=== PATIENT | male | born 1960 | race Caucasian/White ===

== ENCOUNTER 2016-05-18 05:49 | Day surgery (SDC) | payer OTHER, SELFPAY ==
[2016-05-18] MEDS ORDERED: LACTATED RINGERS 1,000 ML ONE (06:22)
[2016-05-18] MEDS ORDERED: PROPOFOL 200 MG/20 ML VIAL IV ONE (07:00)
--- NOTE | 2016-05-18 09:15 | OP ---
DATE OF PROCEDURE: 05/18/16 PREOPERATIVE DIAGNOSIS: 1. Recurrent diverticulitis and abnormal CT of the colon. POSTOPERATIVE DIAGNOSIS: 1. Sigmoid diverticulosis. PROCEDURE: 1. Colonoscopy. SURGEON: Julio Shepherd MD. COMPLICATIONS: None apparent. BLOOD LOSS: None. MEDICATIONS: Monitored anesthesia care. DESCRIPTION OF PROCEDURE: Informed consent was obtained prior to sedation. The preprocedure cardiopulmonary assessment was satisfactory. The patient was placed in the left lateral decubitus position and was sedated. A digital rectal exam was unremarkable. The tip of the Olympus colonoscope was inserted in the rectum and guided over to the cecum. The cecum was identified by locating the ileocecal valve and appendiceal orifice. The mucosa of the cecum, ascending colon, hepatic flexure, transverse colon, splenic flexure, descending colon and sigmoid colon was closely examined. Direct and retroflexed views of the rectum were obtained. The significant findings are sigmoid diverticulosis. There is no evidence of active diverticulitis, no significant stricture, and nothing like a colon mass seen. RECOMMENDATIONS: Followup with Dr. Nash to see about a resection of the affected colon to try to prevent or reduce the risk of recurrent diverticulitis. #[id number] cc: Colton Nash MD MTDD
[2016-05-18 09:43] VITALS: TEMP 97.7; O2SAT 96
[2016-05-18 09:45] VITALS: BP 143/88
== END 2016-05-18 09:30 | disposition home or self-care (01) ==
LOC: AMB 05:49
PROVIDERS: ATTEND Internal Medicine Gastroenterology
DX: K57.32 Diverticulitis of large intestine without perforation or abscess without bleeding (principal); R93.3 Abnormal findings on diagnostic imaging of other parts of digestive tract; K57.30 Diverticulosis of large intestine without perforation or abscess without bleeding; Z86.010 Personal history of colon polyps; F17.210 Nicotine dependence, cigarettes, uncomplicated
CPT/HCPCS: 00810; 45378; J3490; J7120

== ENCOUNTER 2016-06-30 05:57 | Inpatient (IN) | payer OTHER ==
--- NOTE | 2016-06-28 10:01 | RAD ---
EXAM DESCRIPTION: Chest,2 Views CLINICAL HISTORY: 55 years,Male,PRE OP COMPARISON: January 18, 2016 FINDINGS: There are no consolidations. No effusions. No pneumothoraces. No nodules. Bony elements unremarkable for age. IMPRESSION: Unremarkable chest for age stable. Incidental is heavy calcification seen in the carotid bifurcations. Electronically signed by: Herminio Bolden MD 06/28/2016 10:00 AM CDT
[2016-06-30] MEDS ORDERED: LACTATED RINGERS 1,000 ML ONE (06:15)
[2016-06-30] MEDS ORDERED: SODIUM CHL 0.9% 100ML MINI-BAG 100 ML IVPB ONE (06:15)
[2016-06-30] MEDS ORDERED: cefOXitin SODIUM 2 GM INJ IVPB ONE ×4 (06:15→20:10)
[2016-06-30] MEDS ORDERED: hydrALAZINE HCl 20 MG/ML VIAL ONE (07:00)
[2016-06-30] MEDS ORDERED: METOCLOPRAMIDE HCL INJ 10 MG/2 ML VIAL ONE (08:00)
[2016-06-30] MEDS ORDERED: VECURONIUM BROMIDE 10 MG VIAL IV ONE (08:00)
[2016-06-30] MEDS ORDERED: LIDOCAINE 1% 10 ML VIAL INJ ONE (08:00)
[2016-06-30] MEDS ORDERED: WATER FOR INJ 10 ML VIAL INJ ONE (08:00)
[2016-06-30] MEDS ORDERED: LABETALOL INJ 5 MG/ML VIAL ONE (08:00)
[2016-06-30] MEDS ORDERED: DEXAMETHASONE INJ 10 MG/ML VIAL ONE (08:00)
[2016-06-30] MEDS ORDERED: GLYCOPYRROLATE 0.2 MG/ML VIAL ONE (08:00)
[2016-06-30] MEDS ORDERED: raNITIdine HCL INJ 25 MG/ML VIAL ONE (08:00)
[2016-06-30] MEDS ORDERED: PROPOFOL 200 MG/20 ML VIAL IV ONE (08:00)
[2016-06-30] MEDS ORDERED: NEOSTIGMINE METHYLSULFATE 1 MG/ML ML IV ONE (08:00)
[2016-06-30] MEDS ORDERED: MIDAZOLAM INJ 5 MG/5 ML VIAL ONE (08:10)
[2016-06-30] MEDS ORDERED: fentaNYL CITRATE INJ 50 MCG/ML AMP ONE ×2 (08:10→08:55)
[2016-06-30] MEDS ORDERED: LEVALBUTEROL NEBS 1.25 MG/3 ML VIAL NEB ONE ×2 (08:14→12:26)
--- NOTE | 2016-06-30 08:37 | HP ---
HISTORY OF PRESENT ILLNESS: The patient is a 55-year-old male who has had multiple episodes of diverticulitis and chronic left lower quadrant pain. He has undergone a colonoscopy by Dr. Shepherd, followed by an antibiotic and mechanical bowel prep yesterday and he is admitted today for exploratory laparotomy and sigmoid colectomy with anastomosis. PAST MEDICAL HISTORY: 1. Hepatitis C. 2. Urinary frequency. 3. Benign prostatic hypertrophy. 4. Chronic obstructive pulmonary disease. PAST SURGICAL HISTORY: 1. Appendectomy. 2. Left inguinal herniorrhaphy. 3. Lymph node resection on his right neck. CURRENT MEDICATIONS: He takes no medications on a routine basis. ALLERGIES: NO KNOWN DRUG ALLERGIES. FAMILY HISTORY: Negative for inflammatory bowel disease or carcinoma of the colon. SOCIAL HISTORY: He is . He has a 40 to 60 pack year history of tobacco abuse. No history of alcohol abuse. 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 REVIEW OF SYSTEMS: There has been no weight loss, no recent chest pain or productive cough. No blood per rectum, melanotic stools, or other change in his bowel habits. He denies blood in his urine. He has no problem with balance or headaches. PHYSICAL EXAMINATION: GENERAL: The patient is awake, alert, cooperative, in no acute distress. VITAL SIGNS: The patient is currently afebrile, normotensive. HEENT: Sclerae nonicteric. Mucous membranes moist. NECK: Without adenopathy. BACK: Without CVA tenderness. CHEST: Equal breath sounds bilaterally without wheezing currently. HEART: Regular rhythm. ABDOMEN: Soft. There is mild tenderness in the left lower quadrant without mass. RECTAL: Deferred. EXTREMITIES: Without cyanosis, clubbing or edema. LABORATORY: Hemoglobin 15. Electrolytes are within normal limits. ASSESSMENT: 1. Left lower quadrant abdominal pain secondary to recurrent diverticulitis with diverticulosis. 2. Hepatitis C. 3. Chronic obstructive pulmonary disease. PLAN: Admission today for exploratory laparotomy and sigmoid colectomy. A hospitalist consultation will be obtained postoperatively for his pulmonary toilet and help with fluid management. #[id number] [facility]
[2016-06-30] MEDS ORDERED: ELECTROLYTE-A 1,000 ML IVS ONE ×2 (09:25→10:36)
[2016-06-30] MEDS ORDERED: HYDROmorphone HCL INJ 2 MG/ML VIAL ONE (09:56)
[2016-06-30] MEDS: HYDROmorphone HCL INJ 2 MG/ML VIAL IV PRN ×6 (12:45→22:18)
[2016-06-30] MEDS: ONDANSETRON INJ 4 MG/2 ML VIAL ONE ×2 (12:53→12:55)
--- NOTE | 2016-06-30 13:24 | OP ---
DATE OF PROCEDURE: 06/30/16 PREOPERATIVE DIAGNOSIS: 1. Recurrent diverticulitis. POSTOPERATIVE DIAGNOSIS: 1. Recurrent diverticulitis. PROCEDURE: 1. Exploratory laparotomy. 2. Sigmoid colectomy with transrectal stapled EEA anastomosis. SURGEON: Colton Nash MD. HOT MIX OPERATOR: None. ANESTHESIA: General endotracheal anesthesia. INDICATION: The patient is a 55-year-old male who has had multiple episodes of diverticulitis with chronic left lower quadrant pain. He has undergone a colonoscopy last month which revealed no other pathology other than the diverticular disease and after an antibiotic and mechanical bowel prep, he was brought to the Surgical Suite today for laparotomy after the risks, benefits and alternatives to the procedure were discussed with the patient in my office. FINDINGS: There were significant adhesions in the pelvis to the left pelvic sidewall. No other significant pathology was identified. The liver palpated as a soft, normal liver. When the proctoscope was used to insufflate the colon after the anastomosis, there were no bubbles noted. PROCEDURE: After adequate general endotracheal anesthesia was obtained, the patient was placed in dorsolithotomy position, prepped and draped in the usual sterile manner. Mercado catheter was placed. A surgical time-out was taken. At this time, a midline incision was made from just even with the umbilicus down to the pubis, first with a sharp knife. Dissection was carried down through the skin and subcutaneous tissue using blunt dissection and electrocautery. At this point, the midline fascia was scored using electrocautery and eventually the peritoneum the same way. The area was inspected. At this time, the patient was placed in Trendelenburg position and the self-retaining retractor was used. The small bowel, which there were some adhesions from his previous appendectomy to the right posterior peritoneum. These were lysed and the small bowel was placed under a green towel and retracted using a malleable retractor. When this was done, the colon was identified. The adhesions were taken down using electrocautery and blunt dissection. When this was identified, dissection was carried distally until fresh tissue was identified. The mesentery was divided using blunt dissection and clamps and ligatures of 2-0 and 3-0 Vicryl. It was then stapled using a thick, double row stapler and transected with a sharp knife. The mesentery was then divided using clamps and ligatures of 2-0 and 3-0 Vicryl. The proximal area for resection was identified. It was cleaned using electrocautery and blunt dissection and clamps and ligatures of 3-0 Vicryl. When this had been done and the mesentery had been completely divided, then the pursestring device was used to staple across the proximal margin and it was transected using curved Rojas scissors and the specimen was passed from the field. A sponge was placed underneath the colon and the end was opened. The extra rory were removed. It was gently dilated first with hemostat and then with the dilators, first a 25 mm and then a 28 mm. At this point, the 28 EEA was obtained. The anvil was obtained and introduced into the proximal colon. The suture was tightened and tied. At this point, a sponge which had been placed in the pelvis for hemostasis was removed. The pelvis was irrigated minimally. Hemostasis was noted to be adequate. At this point, I went to the perineum and first introduced the 25 and 28 dilators without significant difficulty, then the EEA device was introduced, identified at the staple line, and the post was brought out just anterior to the staple line. The anvil was then attached. It was closed without difficulty, fired, and removed without difficulty. At this point, the proctoscope was introduced. The anastomosis was identified. There was a small amount of bleeding. Air insufflated and there was no leak when saline was placed in the pelvis. At this point, the proctoscope was removed. I was able to inspect the proximal and distal donuts. They were sent for pathologic evaluation, but they appeared to be good donuts. At this point, we all changed gowns and gloves. I returned to the upper abdomen which was irrigated copiously with saline. The nasogastric tube was checked in the stomach. The liver was palpated and noted to be within normal limits. At this point, again, the pelvis was irrigated, aspirated, and the midline fascia was then closed with running #1 PDS from above and below. This was tightened and tied. The subcutaneous tissue was irrigated with saline. The skin edges were approximated with a skin stapler. Sterile dressing was applied. An abdominal binder was applied. The patient was awakened and taken to the Recovery Room in good and stable condition. Estimated blood loss was approximately 400 mL. All sponge, needle and instrument counts were correct. #[id number] [facility]
[2016-06-30] MEDS ORDERED: SODIUM CHL 0.9% 50ML MIN-BAG+ 50 ML IVPB ONE ×2 (14:28→20:10)
[2016-06-30] MEDS: PANTOPRAZOLE SODIUM IV 40 MG VIAL IV SCH (14:38)
[2016-06-30] MEDS: cefOXitin SODIUM 2 GM in SODIUM CHL 0.9% 50ML MIN-BAG+ 50 ML IVPB SCH ×2 (14:39→22:10)
[2016-06-30] MEDS ORDERED: NICOTINE PATCH 14 MG TD ONE (15:34)
[2016-06-30] MEDS ORDERED: REMOVE OLD PATCH TOP ONE (16:00)
[2016-06-30] MEDS: LACTATED RINGERS 1,000 ML IVS PRN (17:44)
--- NOTE | 2016-06-30 18:57 | CONS ---
DATE OF CONSULTATION: 06/30/16 SUPERVISING PHYSICIAN: Nilson Myles M.D. REFERRING PHYSICIAN: Colton Nash M.D. REASON FOR CONSULTATION: Postoperative management sigmoid colectomy with transrectal anastomosis with history of extensive tobacco abuse. HISTORY OF PRESENT ILLNESS: Mr. Alarcon is a 55 year-old male patient that has an extensive history of multiple episodes of diverticulitis and left lower quadrant pain requiring hospitalization in the past. He had recently undergone a colonoscopy by Dr. Shepherd and had seen Dr. Nash. Today he had an exploratory laparotomy and sigmoid colectomy with transrectal anastomosis for recurrent diverticulitis. The patient was seen postoperatively to assist with medical management as the patient has a longstanding history of chronic obstructive pulmonary disease with tobacco abuse. The patient was seen in the immediate postoperative state from recovery and at time of exam was in stable condition and alert. PAST MEDICAL HISTORY: 1. Hepatitis C. 2. Chronic smoking with lung involvement with chronic obstructive pulmonary disease. 3. Enlarged prostate. PAST SURGICAL HISTORY: 1. Right cervical node removal. 2. Appendectomy at age 10. 3. Left hernia repair by Dr. Nash. CURRENT MEDICATIONS: The patient takes no chronic medications. ALLERGIES: NO KNOWN DRUG ALLERGIES. FAMILY HISTORY: Negative for inflammatory bowel disease or carcinoma of the colon. Positive for coronary artery disease, diabetes mellitus, strokes and cancers. SOCIAL HISTORY: Mr. Alarcon has smoked tobacco since age 7 and currently is a 1- 1/2 pack per day smoker related to approximately 50 to 60 pack per year history. He does have a history of intravenous drug abuse but reports that he has been clean for over 30 years. He did develop hepatitis C at age 13 after drug exposure and multiple tattoos. REVIEW OF SYSTEMS: CONSTITUTIONAL: He denies that he has had any weight loss in the recent months , but has noted he has had an approximately 30 to 40 pound weight loss over the last 3 years. He denies any fever or chills prior to surgical process. HEENT: Denies any significant hearing or vision changes or disturbances. PULMONARY: He does have a frequent cough with some mild shortness of breath with exertion and he is a chronic smoker. CARDIOVASCULAR: He has no significant history of chest pains. Denies any palpitations. GASTROINTESTINAL: Denies any blood per rectum, melenic stools or other changes in bowel habits, nausea or vomiting. Does have history as noted in the History of Present Illness with multiple episodes of diverticulitis requiring hospitalization. GENITOURINARY: Does have a history of enlarged prostate but denies any dysuria or any hematuria. EXTREMITIES: No reported complaints of edema. NEUROLOGIC: He has no focal deficits or headaches reported. PHYSICAL EXAMINATION: VITAL SIGNS: On admission to the Medical/Surgical floor showed temperature 98.4 , pulse 92, blood pressure 130/75, respirations 20, satting 96% on nasal cannula at 3 liters. Admission weight was 87.0 kg. GENERAL: The patient was seen immediately postoperative from PACU. He was alert but sleepy, but easy to arouse. Appeared to be comfortable. HEENT: Tympanic membranes are clear bilaterally. Oropharynx is pink and moist. There were no lesions noted. NECK: Supple. No jugular venous distention. CHEST: Lungs sounds are clear but diminished towards the bases. There is no notable rhonchi, wheezing or rales. HEART: Regular rate and rhythm without appreciable murmurs, gallops, or rubs. ABDOMEN: Bowel sounds were significantly diminished, although difficult to assess with an abdominal binder in place. The patient is obviously tender from recent surgery but appears comfortable. EXTREMITIES: No clubbing, cyanosis or edema. NEUROLOGIC: He is alert and oriented times three. LABORATORY: Preoperative lab work shows white count 8.9, hemoglobin 15.8, hematocrit 46.7 with platelet count 248,000. Differential showed to be within normal limits. Preoperative chemistries showed normal electrolytes with potassium 4.4, BUN 15, creatinine 0.96, glucose 111, calcium 9.0. Preoperative urinalysis showed to be within normal limits. RADIOLOGY: Preoperative chest x-ray per radiology interpretation showed no consolidations, effusions, pneumothoraces or nodules. Otherwise unremarkable chest. There was note of heavy calcification seen in the carotid bifurcations. Preoperative EKG showed normal sinus rhythm. No ST or T wave changes. ASSESSMENT: 1. Postoperative day zero for exploratory laparotomy and sigmoid colectomy with a transrectal anastomosis secondary to recurrent diverticulitis. 2. History of hepatitis C. 3. Chronic obstructive pulmonary disease in a chronic smoker. 4. History of nicotine addiction in a chronic smoker. PLAN: The patient will be followed medically along with the direction of Dr. Nash, general surgeon, in regards to postoperative recovery phase. Will monitor the patient closely in regards to his chronic obstructive pulmonary disease and nicotine addiction. Will encourage, once he is fully able to and alert, incentive spirometry and deep breathing exercises to prevent any complications such as atelectasis. In regards to pulmonary function, will closely monitor and should he show any decrease in functionality in regards to low O2 sats, will consider adding pulmonary hygiene and breathing treatments accordingly. In regards to his nicotine addiction, will start him on a nicotine patch once he is fully alert and awake. Will start with a low dose to ensure he does not have any side effects such as nausea and advance the milligrams as needed to assist him in his efforts to continue with smoking cessation, and prevent any anxiety issues related to nicotine withdrawals. Will anticipate discharge at the direction from Dr. Nash and follow the patient medically as needed, and monitor closely. Until discharge, will continue to monitor the patient and treat appropriately. #[id number] [facility]
[2016-06-30] MEDS: ENOXAPARIN SODIUM 40 MG/0.4 ML SYG SUBCU SCH (20:24)
[2016-07-01] MEDS: HYDROmorphone HCL INJ 2 MG/ML VIAL IV PRN ×10 (00:33→22:58)
[2016-07-01] MEDS: LACTATED RINGERS 1,000 ML IVS PRN ×3 (02:41→19:19)
[2016-07-01] MEDS ORDERED: SODIUM CHL 0.9% 50ML MIN-BAG+ 50 ML IVPB ONE (05:31)
[2016-07-01] MEDS ORDERED: cefOXitin SODIUM 2 GM INJ IVPB ONE (05:31)
[2016-07-01] MEDS: cefOXitin SODIUM 2 GM in SODIUM CHL 0.9% 50ML MIN-BAG+ 50 ML IVPB SCH (06:08)
[2016-07-01] MEDS: IV SET AND CAP CHANGE INJ INJ SCH (09:23)
[2016-07-01] MEDS: NICOTINE PATCH 21 MG TD SCH (10:39)
--- NOTE | 2016-07-01 12:07 | PCM.CORE ---
Physician DVT/VTE - Nurse DVT Assessment & Total Each Risk Factor Represents 2 Points: Major Surgery >45 minutes Each Risk Factor Represents 1 Point: Age 41-60, Medical PT at Bed Rest, Hx Major Surgery <1month, Hx of smoking past year Each Risk Factor is 1 Point: Hx of Inflammatory Bowel Disease, Obesity (BMI >25) DVT Assessment Score: 8 - 5 or more Very High Risk Treatments: Early Ambulation *, Sequential Compression Device
[2016-07-01] MEDS: PANTOPRAZOLE SODIUM IV 40 MG VIAL IV SCH (12:46)
--- NOTE | 2016-07-01 17:12 | PN ---
DATE: 07/01/16 SUPERVISING PHYSICIAN: Anupam Phillips M.D. SUBJECTIVE: The patient is resting in bed. He has been up walking. Still has an NG tube in place. He remains afebrile. Says his pain is fairly well controlled. He has not had any nausea. He did have a little episode of some anxiety yesterday postoperatively and did well with just a low dose of Ativan. OBJECTIVE: VITAL SIGNS: T max 98.5, pulse 87, blood pressure 138/70, respirations 20, O2 sat 96% on 3 liters at rest, 92% on room air. I's and O's show a positive balance of 581 with 1581 in, 1,000 out. He has had a total of 450 from his NG tube. Weight 87.0 kg. GENERAL: The patient appears to be comfortable. NG tube is placed. He is alert and oriented. CHEST: Lungs are clear to auscultation bilaterally without any rhonchi, wheezing or rales. HEART : Regular rate and rhythm. ABDOMEN: Without any audible bowel sounds with an abdominal binding in place. EXTREMITIES: No clubbing, cyanosis or edema. NEUROLOGIC: He is alert and oriented times three. LABORATORY: White count today is 14.4, hemoglobin 13.1, hematocrit 39.5, platelet count 220,000. Differential shows a left shift. Chemistries show normal electrolytes with potassium 4.0, BUN 16, creatinine 0.94, glucose 138. ASSESSMENT: 1. Postoperative day 1 for exploratory laparotomy and sigmoid colectomy with transrectal anastomosis secondary to recurrent diverticulitis. 2. History of hepatitis C. 3. Chronic obstructive pulmonary disease in a chronic smoker. 4. History of nicotine addiction in a chronic smoker. PLAN: Will continue to follow the patient closely along with Dr. Nash. Plans to remove Mercado today. The patient is encouraged to walk at least 4 times a day as well. He is again encouraged to utilize his incentive spirometry and do deep breathing exercises to prevent any complications of atelectasis. He will remain on O2 as needed to maintain O2 sats between 92 and 94%. I did start a nicotine patch last night at 14 mg. This will be advanced to 20 mg as the patient is close to a 2 pack per day smoker. So far he is tolerating his nicotine patch and will continue to monitor closely. Will anticipate discharge at Dr. Nash's discretion once clinically improved and stable. Until then, continue to monitor the patient and treat appropriately. #[id number] [facility]
[2016-07-01] MEDS: ENOXAPARIN SODIUM 40 MG/0.4 ML SYG SUBCU SCH (20:54)
[2016-07-02] MEDS: HYDROmorphone HCL INJ 2 MG/ML VIAL IV PRN ×6 (07:39→22:02)
[2016-07-02] MEDS: NICOTINE PATCH 21 MG TD SCH (08:30)
[2016-07-02] MEDS ORDERED: LEVALBUTEROL NEBS 1.25 MG/3 ML VIAL NEB PRN (10:48)
[2016-07-02] MEDS ORDERED: MAGNESIUM HYDROXIDE 30 ML UD NG ONE (11:08)
[2016-07-02] MEDS: LACTATED RINGERS 1,000 ML IVS PRN (12:56)
[2016-07-02] MEDS: PANTOPRAZOLE SODIUM IV 40 MG VIAL IV SCH (13:00)
[2016-07-02] MEDS: LEVALBUTEROL NEBS 1.25 MG/3 ML VIAL NEB SCH ×2 (17:54)
--- NOTE | 2016-07-02 19:10 | PN ---
DATE: 07/02/16 SUPERVISING PHYSICIAN: Anupam Phillips M.D. SUBJECTIVE: The patient is doing well today. His NG tube has been removed. Mercado catheter is out. He has been walking several times a day. He has had no significant shortness of breath. He has no cough. Has not had any fever. He denies any nausea or vomiting. OBJECTIVE: VITAL SIGNS: T max 98.9, pulse 89, blood pressure 147/80, respirations 20, satting 92% on room air. I's and O's show a negative balance of 257 with 2918 in, 3175 out. He has had a total of 1300 mL from his NG tube since surgery. Weight is 87.0 kg. CHEST: Lung sounds remain clear to auscultation, just diminished slightly towards the bases. HEART: Regular rate and rhythm. ABDOMEN: bowel sounds are faintly present. Abdomen remains soft but tender. Abdominal dressing remains in place. EXTREMITIES: No clubbing, cyanosis or edema. NEUROLOGIC: He is alert and oriented times three. LABORATORY: White count continues to improve. It is down to 13.3, hemoglobin 11.9, hematocrit 35.5, platelet count 186,000. Differential shows to be within normal limits. ASSESSMENT: 1. Postoperative day 2 for exploratory laparotomy and sigmoid colectomy with a transrectal anastomosis secondary to recurrent diverticulosis. 2. Hepatitis C. 3. Chronic obstructive pulmonary disease in a chronic smoker. 4. History of nicotine addiction in a chronic smoker. PLAN: Will continue to monitor the patient closely. He has been started on Xopenex breathing treatments and encouraged to utilize his incentive spirometry every 2 hours while awake. He also is encouraged to ambulate 4 to 5 times a day. His NG tube has been removed. Will follow the patient along as he advances his diet under the direction of Dr. Nash. Will anticipate discharge at Dr. Nash's discretion. Until then, continue to monitor the patient until he is stable and can be able to discharge. #[id number] [facility]
[2016-07-02] MEDS: SODIUM CHLORIDE 0.9% (FLUSH) 10 ML SYG IV PRN ×2 (19:32→22:01)
[2016-07-02] MEDS: ENOXAPARIN SODIUM 40 MG/0.4 ML SYG SUBCU SCH (19:33)
[2016-07-03] MEDS: LEVALBUTEROL NEBS 1.25 MG/3 ML VIAL NEB SCH ×2 (00:10→07:25)
[2016-07-03] MEDS: SODIUM CHLORIDE 0.9% (FLUSH) 10 ML SYG IV PRN ×3 (00:48→06:26)
[2016-07-03] MEDS: HYDROmorphone HCL INJ 2 MG/ML VIAL IV PRN ×6 (00:48→20:52)
[2016-07-03] MEDS: LACTATED RINGERS 1,000 ML IVS PRN (01:35)
[2016-07-03] MEDS: NICOTINE PATCH 21 MG TD SCH (08:35)
[2016-07-03] MEDS: HYDROcodone 5MG/APAP 325MG 1 EA TAB PO PRN ×2 (09:33→15:43)
[2016-07-03] MEDS: LISINOPRIL 10 MG TAB PO SCH (09:33)
[2016-07-03] MEDS ORDERED: ALBUTEROL SULFATE 2.5 MG/3 ML VIAL NEB PRN (10:01)
[2016-07-03] MEDS: ALBUTEROL SULFATE 2.5 MG/3 ML VIAL NEB SCH ×2 (11:45→16:20)
[2016-07-03] MEDS: PANTOPRAZOLE SODIUM IV 40 MG VIAL IV SCH (13:19)
--- NOTE | 2016-07-03 18:29 | PN ---
DATE: 07/03/16 SUPERVISING PHYSICIAN: Anupam Phillips M.D. SUBJECTIVE: The patient is doing well. He has been up and walking. He does have bowel sounds now. He remains afebrile. He has had no nausea, vomiting or diarrhea. O2 sats have improved since starting on breathing treatments and again encouraging deep breathing exercises. OBJECTIVE: VITAL SIGNS: Temperature 97.3, pulse 84, blood pressure 131/79, respirations 18, O2 sat 94% nasal cannula at 2 liters. Ambulation studies showed that he was satting 78% prior to ambulation on room air and returned to 92% with 3 liters nasal cannula. I's and O's show a positive balance of 600 with 2100 in, 1500 out. Bowel movements are positive today, 2 of them. CHEST: Lungs are clear to auscultation, just diminished towards the bases. HEART: Regular rate and rhythm. ABDOMEN: Soft. Bowel sounds present. EXTREMITIES: No clubbing, cyanosis or edema. NEUROLOGIC: He is alert and oriented times three. LABORATORY: White count continues to normalize, it is down to 11.9. Hemoglobin and hematocrit are stable at 11.7 and 34.5, platelet count 176,000. Differential remains within normal limits. Chemistries show normal electrolytes with potassium 4.1. He is starting to retain some CO2, noted a CO2 of 35. BUN 10, creatinine 0.7, glucose 123, calcium 8.3. ASSESSMENT: 1. Postoperative day 2 for exploratory laparotomy and sigmoid colectomy with a transrectal anastomosis secondary to recurrent diverticulosis. 2. Hepatitis C. 3. Chronic obstructive pulmonary disease with evidence of some hypercapnia and hypoxia on room air in a chronic smoker, likely complicated by previous surgical process with the patient being encouraged to continue with deep breathing exercises and provided with aggressive bronchial hygiene. 4. History of nicotine addiction in a chronic smoker with smoking cessation encouraged currently with a nicotine patch. 5. Hypertension not currently on any medication. PLAN: Again, will encourage the patient to continue with deep breathing exercises. He did have an ambulatory study today and it continues to show similar numbers as today. He most certainly will benefit from oxygen once he is discharged to assist in the postoperative recovery continuation until he is fully recovered. Will plan to redo an ambulatory study in the morning to fully assess his need for home oxygen. Again, we have encouraged deep breathing exercises, continue with aggressive pulmonary hygiene to include EzPAP. Will change his Xopenex to Albuterol treatments q.i.d. He continues to ambulate and does well, and is encouraged to wear his oxygen when he is ambulating. Anticipate discharge maybe tomorrow, again with clinical reevaluation and at the discretion of Dr. Nash. In regards to the hypertension, if continues to be persistent, I will start him on some low dose Lisinopril today. Until discharge , will continue to monitor the patient closely and treat appropriately. #[id number] [facility]
[2016-07-03] MEDS: ENOXAPARIN SODIUM 40 MG/0.4 ML SYG SUBCU SCH (20:18)
[2016-07-03] MEDS: SODIUM CHLORIDE 0.9% (FLUSH) 10 ML SYG IV SCH (20:52)
[2016-07-04] MEDS: HYDROmorphone HCL INJ 2 MG/ML VIAL IV PRN ×5 (02:25→23:34)
[2016-07-04] MEDS: HYDROcodone 7.5MG/APAP 325MG 1 EA TAB PO PRN ×4 (05:37→22:03)
[2016-07-04] MEDS: SODIUM CHLORIDE 0.9% (FLUSH) 10 ML SYG IV SCH ×2 (08:31→19:34)
[2016-07-04] MEDS: NICOTINE PATCH 21 MG TD SCH (08:31)
[2016-07-04] MEDS: LISINOPRIL 10 MG TAB PO SCH (08:32)
[2016-07-04] MEDS ORDERED: ALPRAZolam 0.25 MG TAB PO PRN (09:00)
[2016-07-04] MEDS: ALBUTEROL SULFATE 2.5 MG/3 ML VIAL NEB SCH ×4 (09:45→19:30)
[2016-07-04] MEDS ORDERED: MAGNESIUM HYDROXIDE 30 ML UD PO ONE ×2 (10:23→16:29)
--- NOTE | 2016-07-04 10:28 | RAD ---
Three view abdomen. Indication: post op nausea and vomiting Comparison: January 20, 2016. Impression: Mild basilar atelectasis. Skin rory lower abdomen/pelvis midline. No free air. Bowel gas pattern nonspecific. No abnormal calcifications. No acute osseous abnormality. Electronically signed by: Marcus Rivero MD 07/04/2016 10:28 AM CDT
[2016-07-04] MEDS: IV SET AND CAP CHANGE INJ INJ SCH (11:14)
[2016-07-04] MEDS: PANTOPRAZOLE SODIUM IV 40 MG VIAL IV SCH (15:06)
[2016-07-04] MEDS ORDERED: MAGNESIUM HYDROXIDE 30 ML UD ONE (18:09)
--- NOTE | 2016-07-04 19:14 | PN ---
DATE: 07/04/16 SUPERVISING PHYSICIAN: Anupam Phillips M.D. SUBJECTIVE: The patient has had a little nausea last night and this morning. He remains afebrile. He continues to be ambulatory. He has had some bowel gas and a slight bowel movement. He has been having some episodes of anxiety as well. OBJECTIVE: VITAL SIGNS: Temperature 98.8, pulse 87, blood pressure 148/84, respirations 20, satting 94% on nasal cannula at 3 liters. I's and O's show a positive balance of 277 with 2227 in, 1950 out. He has had several bowel movements. Weight 87.0 kg. CHEST: Lungs are clear to auscultation. HEART: Regular rate and rhythm. ABDOMEN: Binder in place. There are bowel sounds present. He remains tender over the incision site. [place] are in place with no signs of infection. EXTREMITIES: No clubbing, cyanosis or edema. NEUROLOGIC : He is alert and oriented times three, although quite anxious at times. LABORATORY: White count is now normalized at 8.7, hemoglobin and hematocrit are stable at 11.2 and 32.9, platelet count 168,000. Differential remains within normal limits. Chemistries show normal electrolytes with potassium 4.1. There are no additional chemistries for review today. RADIOLOGY: Abdominal x-ray this morning per radiology interpretation showed bowel gas pattern was nonspecific. No free air. ASSESSMENT: 1. Postoperative day 3 for exploratory laparotomy and sigmoid colectomy with a transrectal anastomosis secondary to recurrent diverticulosis. 2. Hepatitis C. 3. Chronic obstructive pulmonary disease with some evidence of hypercapnia and some mild hypoxemia on room air although showing improvement in a chronic smoker. Continues to be encouraged to utilize his pulmonary hygiene with incentive spirometry and bronchodilators. 4. History of nicotine addition in a chronic smoker. Smoking cessation encouraged. Currently on nicotine patch. 5. Hypertension just recently started on Lisinopril. PLAN: The patient continues to ambulate. Again, he did have some nausea this morning. Will continue to follow the patient closely and monitor his blood pressure and his respiratory efforts. Encourage deep breathing exercises. Will again do an ambulatory study in the morning. Will anticipate discharge at Dr. Nash's discretion. In regards to his anxiety episodes, will plan to give him some Xanax. He is having some difficulty at night sleeping, therefore will try a little Ativan 1 single dose tonight to see how he does. Until then, continue to monitor the patient closely and treat appropriately. #[id number] MTDD
[2016-07-04] MEDS: ENOXAPARIN SODIUM 40 MG/0.4 ML SYG SUBCU SCH (19:34)
[2016-07-04] MEDS: SODIUM CHLORIDE 0.9% (FLUSH) 10 ML SYG IV PRN (23:34)
[2016-07-05] MEDS: NICOTINE PATCH 21 MG TD SCH ×2 (06:09→08:58)
--- NOTE | 2016-07-05 06:49 | RAD ---
Procedure: XR ABDOMEN 2 VIEWS SUPINE ERECT Exam Date: 07/05/2016 Ordering Provider: SHAQ THOMPSON Clinical Indication: fu n/v post op Comparison: 07/04/2016 Findings: Surgical rory over the lower midline. There is no small or large bowel distention. There is no pneumoperitoneum. There are no suspicious calcifications. There is no acute skeletal abnormality. Impression: 1. No acute findings. Electronically signed by: Anthony Brooks MD 07/05/2016 6:48 AM CDT
[2016-07-05] MEDS: ALPRAZolam 0.5 MG TAB PO PRN ×2 (08:33→17:19)
[2016-07-05] MEDS: HYDROcodone 7.5MG/APAP 325MG 1 EA TAB PO PRN ×4 (08:33→21:47)
[2016-07-05] MEDS: LISINOPRIL 10 MG TAB PO SCH (08:33)
[2016-07-05] MEDS: ALBUTEROL SULFATE 2.5 MG/3 ML VIAL NEB SCH ×4 (08:54→19:59)
[2016-07-05] MEDS: SODIUM CHLORIDE 0.9% (FLUSH) 10 ML SYG IV SCH ×2 (08:58→20:44)
[2016-07-05] MEDS: HYDROmorphone HCL INJ 2 MG/ML VIAL IV PRN (09:26)
[2016-07-05] MEDS: SODIUM CHLORIDE 0.9% (FLUSH) 10 ML SYG IV PRN (09:27)
[2016-07-05] MEDS ORDERED: MAGNESIUM HYDROXIDE 30 ML UD PO ONE (10:13)
[2016-07-05] MEDS: IBUPROFEN 200 MG TAB PO SCH ×3 (11:05→20:45)
[2016-07-05] MEDS: PANTOPRAZOLE SODIUM IV 40 MG VIAL IV SCH (13:05)
--- NOTE | 2016-07-05 18:55 | PN ---
DATE: 07/05/16 SUPERVISING PHYSICIAN: Nilson Myles M.D. SUBJECTIVE: The patient continues to report that he has had some nausea and denies he has had much bowel movement, but he continues to be ambulatory and he is tolerating a diet. He remains afebrile. He is still continuing to require a good deal amount of Dilaudid. OBJECTIVE: VITAL SIGNS: Temperature 99, pulse 86, blood pressure 155/76, respirations 16, O2 sat 95% on room air. I's and O's show a positive balance of 907 with 1732 in, 825 out. Says he has had a couple of bowel movements. CHEST: Lungs are clear to auscultation. No wheezing or rhonchi are heard. HEART: Regular rate and rhythm. ABDOMEN: Remains soft with positive bowel sounds. EXTREMITIES: No clubbing, cyanosis or edema. NEUROLOGIC: He is alert and oriented times three. LABORATORY: White count normalized yesterday and it was 8.7. No additional chemistries or hematology were repeated. MICROBIOLOGY: Stool cultures pending. He had a C-Diff A and B that was negative. RADIOLOGY: Repeat abdominal x-ray today per radiology interpretation showed no acute findings. ASSESSMENT: 1. Postoperative day 4 for exploratory laparotomy and sigmoid colectomy with a transrectal anastomosis secondary to recurrent diverticulosis. 2. Hepatitis C. 3. Chronic obstructive pulmonary disease in a chronic smoker. Continues to be encouraged with pulmonary hygiene, incentive spirometry and bronchodilators and showing good improvement with ambulatory studies and maintaining oxygenation levels without any supplemental oxygen. 4. History of nicotine addiction in a chronic smoker. Smoking cessation is encouraged and currently he is on a nicotine patch. 5. Hypertension having been recently started on lisinopril. PLAN: Will continue to follow the patient along with Dr. Nash. The patient, in regards to his pulmonary function, seems to be doing well. He is ambulating multiple times throughout the day. He is tolerating a diet and he is actually going to the vending machines and getting food at times. He does remain quite anxious at times. I have tried to utilize p.r.n. Xanax and some Ativan at night , however he continues to be without any significant sleep and is quite hyper. Will try to change his medication regimen for pain management to p.o. today as we stop the Dilaudid with anticipation of hopefully discharging home tomorrow or the next. Until then, will continue to follow the patient closely along with Dr. Nash and monitor and treat appropriately. #[id number] [facility]
[2016-07-05] MEDS ORDERED: TEMAZEPAM 15 MG CAP PO PRN (20:13)
[2016-07-06 06:14] VITALS: BP 130/69; TEMP 97.8
[2016-07-06] MEDS: HYDROcodone 7.5MG/APAP 325MG 1 EA TAB PO PRN ×2 (07:00→10:53)
[2016-07-06] MEDS ORDERED: METOPROLOL SUCCINATE XL 25 MG TAB PO SCH (09:00)
[2016-07-06] MEDS: NICOTINE PATCH 21 MG TD SCH (09:11)
[2016-07-06] MEDS: IBUPROFEN 200 MG TAB PO SCH (09:11)
[2016-07-06] MEDS: LISINOPRIL 10 MG TAB PO SCH (09:15)
[2016-07-06] MEDS: ALPRAZolam 0.5 MG TAB PO PRN (09:16)
[2016-07-06] MEDS: SODIUM CHLORIDE 0.9% (FLUSH) 10 ML SYG IV SCH (09:26)
[2016-07-06] MEDS: ALBUTEROL SULFATE 2.5 MG/3 ML VIAL NEB SCH ×2 (09:26→12:57)
[2016-07-06] MEDS: PANTOPRAZOLE SODIUM IV 40 MG VIAL IV SCH (12:28)
--- NOTE | 2016-07-06 13:25 | DS ---
FINAL DIAGNOSIS: 1. Acute and chronic diverticulitis without perforation or bleeding. 2. Essential hypertension. 3. Tobacco abuse. 4. Chronic obstructive pulmonary disease. SURGICAL PROCEDURE: On 06/30/16, exploratory laparotomy, sigmoid colectomy with primary transanal anastomosis. HISTORY OF PRESENT ILLNESS: The patient is a 55-year-old male who has had multiple episodes of diverticulitis and chronic left lower quadrant pain. He has undergone a colonoscopy by Dr. Shepherd, followed by an antibiotic and mechanical bowel prep yesterday and he is admitted today for exploratory laparotomy and sigmoid colectomy with anastomosis. LABORATORY: On date of discharge, pathology report is consistent with the discharge diagnosis. Hemoglobin the day prior to discharge was 11.2. White count 8.7, 71% segs, platelet count 168,000. HOSPITAL COURSE: The patient was admitted after an antibiotic and mechanical bowel prep to the Surgical Suite where he underwent the procedure and tolerated the procedure well. On postoperative day #1, he had adequate urine output, NG output was minimal. He complained of pain only. He had no bowel sounds. Hemoglobin was down to 13.3, white count 14.7. He finished his three postoperative doses of Mefoxin. He was gotten out of bed and given ice chips. Later that day, we decided to remove his Mercado catheter, but he did not tolerate this and required a straight cath. By the second postoperative day, he was afebrile. He had passed a small amount of flatus and was feeling somewhat better. His white count was down. He was given a dose of Milk of Magnesia and started on a clear liquid diet. His NG was discontinued. His IV fluids were decreased. By the next day, the third postoperative day, he remained afebrile. He had had multiple bowel movements. He complained of pain. He was walking well and did not complain of nausea. He had active bowel sounds. His incision was clean. His white count was down to 11,000 with 76% neutrophils. Potassium was 4.1. He was advanced to a regular diet and switched to oral pain medication. His IV was saline locked. By the fourth day , he continued to have good urine output, having bowel movements, tolerating the diet, but he complained of some nausea and he spit up small amounts which the nurses had observed. His incision was clean. He had good bowel sounds. At this point, we discontinued his Dilaudid and gave him some Advil and told him he had to live on his oral pain medication. He continued to improve, continued to have bowel movements and ambulate. He tolerated the diet. On 12/13, the fifth postoperative day, he was discharged home. CONDITION ON DISCHARGE: Good. PROGNOSIS: Good. DISPOSITION: The patient is to followup in my office in six days. He was discharged on a regular diet and told to push fluids. He was told he can ambulate, but do no lifting or exercise. He was told he can shower, but not tub bath. He was discharged with prescriptions for albuterol machine, for metoprolol, for lisinopril, for nicotine patch, for Zantac, and for [employer] 7.5. He was instructed to call sooner if he developed nausea, vomiting, fever, chills , increasing abdominal pain, or has other questions or problems. #[id number] [facility]
[2016-07-06 15:40] VITALS: O2SAT 96
== END 2016-07-06 14:25 | disposition home or self-care (01) | DRG 331 ==
LOC: AMB 05:57 → MS 13:34
PROVIDERS: ADMIT Nurse Practitioner Family; ATTEND Surgery
PROC: 0DTN0ZZ Resection of Sigmoid Colon, Open Approach (ICD-10-PCS; principal; 2016-06-30 08:29)
DX: K57.32 Diverticulitis of large intestine without perforation or abscess without bleeding (principal); R11.0 Nausea; R09.02 Hypoxemia; F41.9 Anxiety disorder, unspecified; I10 Essential (primary) hypertension; G89.29 Other chronic pain; M25.519 Pain in unspecified shoulder; M54.9 Dorsalgia, unspecified; N40.1 Benign prostatic hyperplasia with lower urinary tract symptoms; R35.0 Frequency of micturition; J44.9 Chronic obstructive pulmonary disease, unspecified; F17.210 Nicotine dependence, cigarettes, uncomplicated; B18.2 Chronic viral hepatitis C; Z79.899 Other long term (current) drug therapy

== ENCOUNTER 2016-07-09 23:06 | Emergency (ER) | payer OTHER ==
[2016-07-09] MEDS ORDERED: fentaNYL CITRATE INJ 50 MCG/ML AMP IV ONE (23:29)
[2016-07-10] MEDS ORDERED: fentaNYL CITRATE INJ 50 MCG/ML AMP IV ONE (00:25)
--- NOTE | 2016-07-10 00:54 | ED.PDOC ---
History of Present Illness - General Chief Complaint: Abdominal Pain Stated Complaint: abd pain, 8 s/p sx Time Seen by Provider: 07/10/16 00:15 Information Source: patient Exam Limitations: no limitations - History of Present Illness Initial Comments: Antony Marsh 55 y/o male with recent abdominal surgery 06/30/2016- partial colon resection due to ruptured diverticulitis [facility] hospital by Dr. Nash surgeon. Patient was discharged 07/06/2016.Today had onset of steady and throbbing generalized abdominal pain this morning took 3 does of MOM thinking he was constipated had a bowel movement but his pain had lingered decided to come to er.Has history of hepatitis C.No other medical illnesses. Abdominal Pain Onset Location: generalized abdomen Pain Radiation: no radiation Quality: steady, throbbing Timing/Duration: 7-24 hours Improving Factors: nothing Worsening Factors: nothing Associated Symptoms: denies symptoms Review of Systems - Review of Systems Constitutional: States: no symptoms reported EENTM: States: no symptoms reported Respiratory: States: no symptoms reported Cardiology: States: no symptoms reported Gastrointestinal/Abdominal: States: see HPI Genitourinary: States: no symptoms reported Musculoskeletal: States: no symptoms reported Skin: States: no symptoms reported Neurological: States: no symptoms reported Endocrine: States: no symptoms reported Hematologic/Lymphatic: States: no symptoms reported Past Medical History (General) - Patient Medical History Hx Seizures: No Hx Stroke: No Hx Dementia: No Hx Asthma: No Hx of COPD: No Hx Cardiac Disorders: No Hx Congestive Heart Failure: No Hx Pacemaker: No Hx Hypertension: Yes Hx Thyroid Disease: No Hx Diabetes: No Hx Gastroesophageal Reflux: No Hx Renal Disease: No Hx Cancer: No Hx of HIV: No Hx Hepatitis C: Yes Hx MRSA: No Surgical History: other - colon resection - Vaccination History Hx Tetanus, Diphtheria Vaccination: No Hx Influenza Vaccination: No Hx Pneumococcal Vaccination: No - Social History Hx Tobacco Use: Yes Hx Chewing Tobacco Use: No Hx Alcohol Use: Yes Hx Substance Use: Yes - 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 Hx Substance Use Treatment: No Hx Depression: No Hx Physical Abuse: No Hx Emotional Abuse: No Hx Suspected Abuse: No - Female History Patient : No Family Medical History - Family History Mother Family History: Unknown Living Status: Cause of : cardiac disease Hx Cardiac Disease: Yes Hx Family;Other: Liver disease Physical Exam - Physical Exam General Appearance: Anxious, No apparent distress, Other - in pain Eyes, Ears, Nose, Throat Exam: PERRL/EOMI, normal ENT inspection, TMs normal, pharynx normal Neck: non-tender, full range of motion, supple, normal inspection Respiratory: chest non-tender, lungs clear, normal breath sounds, no respiratory distress Cardiovascular/Chest: normal peripheral pulses, regular rate, rhythm, no murmur Peripheral Pulses: No deficit Gastrointestinal/Abdominal: normal bowel sounds, distended, guarding, rebound, tenderness Extremity: normal range of motion, non-tender, normal inspection Neurologic: alert, oriented x 3 Skin Exam: normal color, warm/dry Lymphatic: no adenopathy Progress - Results/Orders Results/Orders: Vital Signs - 8 hr 07/09/16 07/10/16 23:22 00:33 Temperature 100.7 F H Pulse Rate [ 107 H 101 H left] Respiratory 18 20 Rate Blood Pressure 157/78 106/59 [Left] O2 Sat by Pulse 92 L 93 L Oximetry 07/10/16 00:55 Sodium Chloride 0.9% 1000ML [Ns 1000 ml] 1,000 ml IVS ONCE 07/10/16 00:56 Hold Metformin x 48Hrs [id number] Abdomen/Pelvis w/Contrast [CT] Stat Laboratory Results WBC 14.5 K/mm3 (4.8-10.8) H 07/10/16 00:19 RBC 4.45 M/mm3 (4.70-6.10) L 07/10/16 00:19 Hgb 13.4 gm/dL (14.0-18.0) L 07/10/16 00:19 Hct 39.3 % (42.0-52.0) L 07/10/16 00:19 MCV 88.3 fl (80.0-94.0) 07/10/16 00:19 MCH 30.1 pg (27.0-31.0) 07/10/16 00:19 MCHC 34.0 g/dL (33.0-37.0) 07/10/16 00:19 RDW 13.8 % (11.5-14.5) 07/10/16 00:19 Plt Count 415 K/mm3 (130-400) H 07/10/16 00:19 MPV 7.9 fl (7.40-10.4) 07/10/16 00:19 Absolute Neuts (auto) 12.30 K/uL (1.8-6.8) H 07/10/16 00:19 Absolute Lymphs (auto) 1.00 K/uL (1.0-3.4) 07/10/16 00:19 Absolute Monos (auto) 0.90 K/uL (0.2-0.8) H 07/10/16 00:19 Absolute Eos (auto) 0.00 K/uL (0.0-0.4) 07/10/16 00:19 Absolute Basos (auto) 0.20 K/uL (0.0-0.1) H 07/10/16 00:19 Neutrophils % 85.3 % (42.0-78.0) H 07/10/16 00:19 Lymphocytes % 6.9 % (20.0-50.0) L 07/10/16 00: Monocytes % 6.3 % (2.0-9.0) 07/10/16 00: Eosinophils % 0.1 % (1.0-5.0) L 07/10/16 00:19 Basophils % 1.4 % (0.0-2.0) 07/10/16 00:19 Sodium 135 mmol/L (135-145) 07/10/16 00:19 Potassium 4.1 mmol/L (3.6-5.0) 07/10/16 00:19 Chloride 96 mmol/L (101-111) L 07/10/16 00:19 Carbon Dioxide 27 mmol/L (21-31) 07/10/16 00: Anion Gap 16.1 (12-18) 07/10/16 00:19 BUN 13 mg/dL (7-18) 07/10/16 00:19 Creatinine 1.16 mg/dL (0.6-1.3) 07/10/16 00: BUN/Creatinine Ratio 11.2 (10-20) 07/10/16 00:19 Random Glucose 138 mg/dL (70-105) H 07/10/16 00:19 Serum Osmolality 272.4 mOsm/L (275-295) L 07/10/16 00:19 Calcium 8.9 mg/dL (8.4-10.2) 07/10/16 00:19 Total Bilirubin 0.8 mg/dL (0.2-1.0) 07/10/16 00:19 AST 30 IU/L (10-42) 07/10/16 00:19 ALT 30 IU/L (10-60) 07/10/16 00:19 Alkaline Phosphatase 74 IU/L (42-121) 07/10/16 00:19 Serum Total Protein 8.6 gm/dL (6.4-8.2) H 07/10/16 00:19 Albumin 3.7 g/dl (3.2-5.5) 07/10/16 00:19 Globulin 4.9 gm/dL (2.3-3.5) H 07/10/16 00:19 Albumin/Globulin Ratio 0.8 (1.1-1.9) L 07/10/16 00:19 Urine Color Yellow (Yellow) 07/10/16 00:22 Urine Appearance Clear (Clear) 07/10/16 00: Urine pH >= 9.0 (4.5-7.8) H* 07/10/16 00:22 Ur Specific [place] 1.015 (1.005-1.030) 07/10/16 00:22 Urine Protein 100 mg/dL H 07/10/16 00:22 Urine Glucose (UA) Negative mg/dL (Negative) 07/10/16 00:22 Urine Ketones Negative mg/dL (NEGATIVE) 07/10/16 00:22 Urine Blood Negative (Negative) 07/10/16 00: Urine Nitrite Negative 07/10/16 00:22 Urine Bilirubin Negative (NEGATIVE) 07/10/16 00: Urine Urobilinogen 0.2 mg/dL (0.2-1.0) 07/10/16 00:22 Ur Leukocyte Esterase Negative (Negative) 07/10/16 00:22 Urine RBC 1-3 /hpf 07/10/16 00:22 Urine WBC 0-1 /hpf 07/10/16 00:22 Ur Epithelial Cells 0 /hpf 07/10/16 00:22 Urine Bacteria 0 07/10/16 00:22 0255 H D/W Dr. Nash patients surgeon he will come see patient in er. - EKG/XRAY/CT CT Ordered: Yes - abd/pel:perforated diverticulitis distal descending colon / radiologist Departure - Departure Clinical Impression: Diverticulitis of colon with perforation Abdominal pain Qualifiers: Abdominal location: generalized Qualified Code(s): R10.84 - Generalized abdominal pain Time of Disposition: 03:57 - D/W Dr. Mayo BLACKWOODEduardo Disposition: Transfer to Hospital Condition: Fair Departure Forms: Patient Portal Self Enrollment Instructions: DI for Abdominal Pain-Adult Home Medications: Ambulatory Orders Ibuprofen [Advil] 200 mg PO DAILY 05/13/16 Melatonin [Melatonin Maximum Strengt] 5 mg PO QPM 05/13/16 diphenhydrAMINE HCL [Benadryl] 25 mg PO PRN PRN 05/13/16 Albuterol Sulfate Nebs [Proventil Nebs] 2.5 mg NEB BID #60 07/06/16 Albuterol Sulfate Nebs [Proventil Nebs] 2.5 mg NEB Q4H PRN #120 07/06/16 HYDROcodone 7.5MG/APAP 325MG [[place] 7.5/325] 2 ea PO Q4H PRN 07/06/16 Lisinopril [Prinivil] 10 mg PO DAILY #30 07/06/16 Metoprolol Tartrate [Lopressor] 12.5 mg PO BID #60 tab 07/06/16 Nicotine Patch 21 mg [Habitrol Patch 21mg] 1 ea TD DAILY #30 07/06/16 raNITIdine HCL [Zantac] 150 mg PO DAILY #30 tab 07/06/16
[2016-07-10] MEDS ORDERED: SODIUM CHLORIDE 0.9% 1000ML 1,000 ML IVS ONE ×2 (00:55→01:38)
[2016-07-10] MEDS ORDERED: HYDROmorphone HCL INJ 2 MG/ML VIAL IV ONE ×2 (02:15→04:08)
--- NOTE | 2016-07-10 02:44 | CT ---
Procedure: CT ABDOMEN PELVIS WITH IV CONTRAST Exam Date: 07/10/2016 Ordering Provider: Angelito Simpson Clinical Indication: Generalized abdominal pain Comparison: 01/18/2016 TECHNIQUE: 5 mm images were taken through the abdomen and pelvis after the administration of nonionic intravenous contrast material. Oral contrast was not administered. Coronal and sagittal reformatted images were generated. This exam was performed according to our departmental dose optimization program which includes use of automated exposure control, adjustment of the mA and/or kV according to patient size and/or use of iterative reconstruction technique. FINDINGS: Lower chest: Right lower lobe atelectasis and/or infiltrate. Mild atelectasis in the dependent left lower lobe. Trace right pleural effusion. Abdomen: Liver and biliary system: No liver lesions. No biliary ductal dilatation. No calcified gallstones. Spleen: Unremarkable Pancreas: Unremarkable Adrenal glands: Unremarkable Kidneys: Subcentimeter low-density lesions in the kidneys are too small to characterize. Stable low-density cyst in the lower pole the right kidney. Stable 2.8 cm intermediate density lesion in the upper pole of the right kidney no hydronephrosis in either kidney. Lymph nodes: No lymphadenopathy Retroperitoneum, abdominal wall, peritoneal cavity: There is a significant amount of free intraperitoneal air. Trace abdominal and pelvic ascites. Surgical rory in the skin at the anterior midline. Vessels: No abdominal aortic aneurysm. There are aortic calcifications. No portal venous gas. Pelvis: Lymph nodes: No lymphadenopathy Bowel: Postsurgical changes at the level of the rectosigmoid colon. Colonic diverticula with mural thickening and infiltration of the adjacent fat at the level of the distal descending colon (series 2 image 72). This is likely the site of perforation. No drainable fluid collections. There are air-fluid levels in the prominent but not dilated small bowel and colon. No pneumatosis. Bladder: Unremarkable Pelvic organs: Prostate calcifications. Bones: Nonacute IMPRESSION: 1. There is a significant amount of free intraperitoneal air which is likely related to a perforated diverticulitis involving the distal descending colon. No drainable fluid collections. No pneumatosis or portal venous gas. 2. Small bowel and colon are prominent with air-fluid levels without definitive evidence of obstruction at this time. 3. Right lower lobe atelectasis and/or infiltrate with trace right pleural effusion. 4. Additional nonemergent findings as above. These critical findings were discussed with Dr. Angelito Simpson at 0235 on 07/10/2016. Electronically signed by: Anthony Brooks MD 07/10/2016 2:43 AM CDT
[2016-07-10] MEDS ORDERED: PIPERACILLIN/TAZOBACTAM 3.375 GM in SODIUM CHLORIDE 0.9% 100ML 100 ML IVPB ONE ×2 (03:48→03:54)
[2016-07-10] MEDS ORDERED: PIPERACILLIN/TAZOBACTAM 3.375 GM VIAL IVPB ONE (03:51)
[2016-07-10] MEDS ORDERED: SODIUM CHLORIDE 0.9% 100ML 100 ML IVPB ONE (03:52)
[2016-07-10 04:15] VITALS: BP 142/77; TEMP 98.4; O2SAT 93
--- NOTE | 2016-07-10 11:29 | CONS ---
DATE OF CONSULTATION: 07/10/16 HISTORY OF PRESENT ILLNESS: The patient is a 55 year-old male well known to me. He is approximately 10 days status post a left colectomy for recurrent diverticulitis. It was an elective procedure, however the pathology report did find that he had both acute and chronic diverticulitis. He was discharged home this past Monday, I believe, tolerating a regular diet. He was afebrile with a normal white blood cell count at that time. He states that he developed abdominal pain yesterday that is severe. It is in the upper abdomen and both flanks. He said he has had fever for approximately 24 to possibly 36 hours. He felt that he had not had a bowel movement so he took several doses of Milk of Magnesia and the pain worsened, and he presented here. His laboratory examination revealed a creatinine of 1.16, potassium 4.1. Liver function tests are within normal limits. White blood cell count is elevated at 14.5. He has 85% neutrophils, hemoglobin 13.4. He has 415,000 platelets. Urinalysis reveals a specific gravity of 1.015, urine protein of 100 and pH of greater than 9. Otherwise it is clear. CT revealed free air with inflammatory process in the left lower quadrant unable to ascertain whether there is perforation at the anastomosis or at some other portion of the bowel or diverticulum. PHYSICAL EXAMINATION: GENERAL: The patient is awake and alert. He is cooperative and anxious. ABDOMEN: Exquisitely tender and mildly distended. Incision is clean and healing well without any erythema or induration and there is no apparent drainage. RECTAL: Examination is deferred. IMPRESSION: 1. Perforation status post sigmoid colectomy, whether it is an anastomotic leak or a new diverticulum is uncertain. PLAN: We have no Operating Room crew tonight, due to the fact that I am not biodiesel process control technician we have no crew at that point. I have discussed this with the patient and with Dr. Simpson, the Emergency Room doctor. He will attempt a transfer to [facility] and I will be available to discuss the case with the surgeon biodiesel process control technician there. #[id number] [facility]
== END 2016-07-10 04:21 | disposition short-term general hospital (02) ==
LOC: ER 23:06
DX: K57.20 Diverticulitis of large intestine with perforation and abscess without bleeding (principal); I10 Essential (primary) hypertension; B19.20 Unspecified viral hepatitis C without hepatic coma; Z87.891 Personal history of nicotine dependence
CPT/HCPCS: 74177; 80053; 80307; 81001; 85025; J1170; J2543; J3010; J7030; J7050

== ENCOUNTER 2016-07-20 14:15 | Inpatient (IN) | payer OTHER ==
[2016-07-20] MEDS ORDERED: SODIUM CHLORIDE 0.9% (FLUSH) 10 ML SYG IV PRN (15:13)
[2016-07-20] MEDS ORDERED: TEMAZEPAM 15 MG CAP PO PRN (15:13)
[2016-07-20] MEDS ORDERED: ACETAMINOPHEN 500 MG TAB PO PRN (15:13)
[2016-07-20] MEDS ORDERED: MAGNESIUM HYDROXIDE 30 ML UD PO PRN (15:13)
[2016-07-20] MEDS ORDERED: SODIUM PHOS/BIPHOS ENEMA ADULT 133 ML BTTL PR PRN (15:13)
[2016-07-20] MEDS ORDERED: IV SET AND CAP CHANGE INJ INJ SCH (15:30)
[2016-07-20] MEDS ORDERED: ALBUTEROL SULFATE 2.5 MG/3 ML VIAL NEB PRN (17:18)
[2016-07-20] MEDS ORDERED: diphenhydrAMINE HCL 25 MG CAP PO PRN (17:18)
[2016-07-20] MEDS: LISINOPRIL 10 MG TAB PO SCH (17:37)
[2016-07-20] MEDS: HYDROcodone 5MG/APAP 325MG 1 EA TAB PO PRN (17:53)
--- NOTE | 2016-07-20 19:25 | PCM.CORE ---
Physician DVT/VTE - Nurse DVT Assessment & Total Each Risk Factor Represents 3 Points: Medical PT with Hx of [place], CHF, Severe infection/sepsis Each Risk Factor Represents 1 Point: Age 41-60, Hx Major Surgery <1month, Hx of smoking past year DVT Assessment Score: 6 - 5 or more Very High Risk Treatments: Early Ambulation *, Sequential Compression Device Pharmacological: Enoxaparin 40mg SQ Daily
[2016-07-20] MEDS ORDERED: MELATONIN 3 MG TAB ONE (19:32)
[2016-07-20] MEDS ORDERED: METOPROLOL TARTRATE 25 MG TAB PO SCH (21:00)
[2016-07-20] MEDS ORDERED: MELATONIN 5 MG PO SCH (21:00)
[2016-07-20] MEDS ORDERED: ALBUTEROL SULFATE 2.5 MG/3 ML VIAL NEB SCH (21:00)
[2016-07-20] MEDS: LORazepam 1 MG TAB PO PRN (21:23)
[2016-07-20] MEDS: MELATONIN 3 MG TAB PO SCH (21:23)
[2016-07-20] MEDS: ENOXAPARIN SODIUM 40 MG/0.4 ML SYG SUBCU SCH (21:24)
[2016-07-20] MEDS: SODIUM CHLORIDE 0.9% (FLUSH) 10 ML SYG IV SCH (21:24)
--- NOTE | 2016-07-20 21:53 | HP ---
SUPERVISING PHYSICIAN: Nilson Myles M.D. REASON FOR SWING BED ADMISSION: Ongoing wound management, wound care, ileostomy care and education. HISTORY OF PRESENT ILLNESS: Mr. Alarcon is a 55 year-old male patient of Dr. Nash's who on 06/30/16 had an exploratory laparotomy and sigmoid colectomy with primary transrectal anastomosis secondary to acute on chronic diverticulitis. The patient was discharged from [facility] on 07/06/16. On 07/10/16, the patient presented back to the Emergency Department in [place] complaining of abdominal pain. In the Emergency Department , CT scan of the abdomen showed he had free intraabdominal air and there was no surgical capabilities on that day. The patient was then transferred to [facility]. At [facility], he was found to have acute peritonitis secondary to a perforated viscus anastomotic leak and had an exploratory laparotomy with a loop ileostomy. The patient recovered and did well clinically, and continues to have need for medical management to [facility] for ongoing wound care. The patient is unable to have outpatient wound management secondary to financial reasons and is very unreliable in managing his wound at this point, therefore [facility] requested that the patient be transferred to [facility] to assist with ongoing wound management and education prior to discharging the patient home. The patient was transferred from [facility] today and admitted to [facility] on 07/20/16. He was in stable condition at time of admission. PAST MEDICAL HISTORY: 1. History of diverticulosis with multiple episodes of diverticulitis and chronic left lower quadrant pain requiring a colectomy that was performed on 06/30/16 2. Hepatitis C. 3. Chronic smoker with lung involvement with chronic obstructive pulmonary disease. 4. Enlarged prostate. PAST SURGICAL HISTORY: 1. Sigmoid colectomy with transrectal anastomosis secondary to diverticulitis , chronic, performed on 06/30/[address] Nash. 2. Exploratory laparotomy with a loop ileostomy secondary to perforated viscus on 07/10/[address] Thee Elkins. 3. Right cervical node removal. 4. Appendectomy at age 10. 5. Left hernia repair performed by Dr. Nash. CURRENT MEDICATIONS: 1. Lopressor 12.5 mg twice daily. 2. Melatonin 5 mg at bedtime. 3. Lisinopril 10 mg daily. ALLERGIES: NO KNOWN DRUG ALLERGIES. FAMILY HISTORY: Negative for inflammatory bowel disease or carcinoma of the colon. Positive for coronary artery disease, diabetes mellitus, strokes and cancer. SOCIAL HISTORY: Mr Alarcon has a long history of smoking tobacco since age 7 prior to current occurrence and hospitalization he was currently smoking 1 to 1- 1/2 packs per day relating to approximately 50 to 60 packs per year history. He has not smoked tobacco since 06/30/16 and has been utilizing nicotine patches for smoking cessation. 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 He says he has been clean for over 30 years. He did develop hepatitis C at age 13 after drug exposure and multiple tattoos. REVIEW OF SYSTEMS: CONSTITUTIONAL: Denies any fevers or chills. HEENT: Denies any significant hearing loss, vision changes or disturbances. PULMONARY: Notes that he does have a cough but is not having any exertional shortness of breath, but he is a chronic smoker. CARDIOVASCULAR: Has no significant history of chest pains. Denies any palpitations or syncopal episodes. GASTROINTESTINAL: As noted in the History of Present Illness. GENITOURINARY: Does have a history of enlarged prostate. Denies any dysuria or any hematuria or other urinary symptoms. EXTREMITIES: No reported complaints of edema. NEUROLOGIC: He has no focal deficits or headaches. PHYSICAL EXAMINATION: VITAL SIGNS: Temperature 98.4, pulse 72, blood pressure 172/87, respirations 20 , satting 98% on room air. Admission weight is 85.0 kg which is down from previous admission of 87.0 kg. GENERAL: The patient appears to be in no acute distress. He is very well hydrated, alert and oriented. HEENT: Tympanic membrane are clear bilaterally. Oropharynx is pink and moist without any lesions. NECK: No jugular venous distention. CHEST: Clear to auscultation bilaterally without any rhonchi, wheezing or rales. CARDIOVASCULAR: Regular rate and rhythm without appreciable murmurs, gallops, or rubs. ABDOMEN: Soft with positive bowel sounds with a large abdominal incision with abdominal bandage in place. Mildly tender. No signs of infection. EXTREMITIES: No clubbing, cyanosis or edema. NEUROLOGIC: He is alert and oriented times three. LABORATORY: CBC on admission showed white count 12.6 with hemoglobin 10.5, hematocrit 31.9 with platelet count 437,000. Differential is without a left shift. Chemistries show normal electrolytes with potassium 3.9, BUN 9, creatinine 0.61, glucose 111. Bilirubin is less than 0.2. All other liver functions were within normal limits. Urinalysis is pending. ASSESSMENT: 1. Postoperative day 10 for an exploratory laparotomy and loop ileostomy secondary to perforated viscus. 2. Recent history of exploratory laparotomy and sigmoid colectomy with transrectal anastomosis secondary to recurrent diverticulitis performed on 06/30/16. 3. Recent history of peritonitis secondary to number 1. 4. Chronic obstructive pulmonary disease in a chronic smoker. 5. History of hepatitis C. 6. History of nicotine addiction in a chronic smoker. 7. Loop ileostomy secondary to number 1. PLAN: The patient is admitted to [facility] for ongoing wound management and education as well as ileostomy and stoma teaching. The patient was discharged from [facility]. I did talk with the Nurse Practitioner that was managing his wound care, Adryan Perkins. His phone number is [phone]. The patient was on a wound VAC and a request for transfer to [facility] for ongoing wound management was requested, however wound VAC capabilities are not available in [place], therefore it was discussed that he would be well with basic wound management with wet-to-dry dressings. The patient was discharged today and wound was healing well with good granulation tissue with no signs of infection prior to discharge from [facility]. The wound was dressed with Hydrogel and an ABD dressing. Given that we have no capability for a wound VAC, recommendations are that we have wet-to-dry dressing either with sterile saline and gauze or if we can utilize Hydrogel which was provided by [facility] to the patient. Dressing changes could be done either twice daily or daily. The patient can shower with the dressing in place and after the shower he is to take the dressing off and once again dress either with Hydrogel and covered with ABD dressing or moistened sterile 4 x 4s with sterile water at least once, if not twice daily. The patient was participating in his wound care at [facility] and is in need of extensive education in regards to managing his wound in the outpatient setting as the wound continues to heal by secondary intention. The plan at this point is to assist in the wound management by demonstrating wound care and then allow the patient to assist with his own wound care while nursing staff provide education. In regards to the ileostomy, he has been given extensive education but continues to be needing reinforcement in ostomy care. He is able to change his bag and empty his bag, and will need education on changing his ostomy and clean his ostomy site as needed. In regards to management of antibiotic therapy, the question was would he continue with IV antibiotics. After discussion with Adryan, the patient was taken off IV antibiotics prior to discharge and still the question of whether or not he is going to be on p.o. antibiotics, therefore Adryan is to provide to us by fax additional information regarding to plan of care and if this is not clear, tomorrow morning I will contact Dr. Elkins, his surgeon, to further clarify the need for antibiotic therapy. Anticipate the patient's length of stay to be at least 3 days. The patient is doing well medically. Once he has extensive education and is found to be competent in doing his wound care, at that point the patient will be able to be discharged to continue with care in the outpatient setting. I will also contact Dr. Elkins's office tomorrow to find out when he is supposed to have followup and to further clarify any care orders that were not relayed after transfer. Will start the patient back on his home medications to include a nicotine patch to continue with smoking cessation. He will be encouraged to do deep breathing exercises and ambulate to prevent DVT along with start him on DVT prophylaxis. The patient is ambulatory and is able to function without any additional need for physical therapy. Will continue to monitor the patient closely as we provide ongoing continued education in wound management until ultimately the patient is discharged to followup with his primary care provider yet to be determined other than Dr. Nash and his general surgeon in [facility], Dr. Elkins. Until then will monitor and treat appropriately. #[id number] [facility]
[2016-07-21] MEDS: HYDROcodone 5MG/APAP 325MG 1 EA TAB PO PRN ×3 (03:07→14:22)
[2016-07-21] MEDS ORDERED: ALBUTEROL SULFATE 2.5 MG/3 ML VIAL NEB ONE (08:25)
[2016-07-21] MEDS: ALBUTEROL SULFATE 2.5 MG/3 ML VIAL NEB SCH ×2 (08:35→19:25)
[2016-07-21] MEDS: METOPROLOL TARTRATE 25 MG TAB PO SCH ×2 (09:35→17:42)
[2016-07-21] MEDS: LISINOPRIL 10 MG TAB PO SCH (09:35)
[2016-07-21] MEDS: SODIUM CHLORIDE 0.9% (FLUSH) 10 ML SYG IV SCH (09:38)
[2016-07-21] MEDS: DOCUSATE SODIUM 100 MG CAP PO SCH (09:49)
[2016-07-21] MEDS: NICOTINE PATCH 21 MG TD SCH (11:36)
[2016-07-21] MEDS: CEFDINIR 300 MG CAP PO SCH ×2 (11:36→20:04)
[2016-07-21] MEDS: LORazepam 1 MG TAB PO PRN ×2 (14:27→22:27)
[2016-07-21] MEDS: HYDROcodone 7.5MG/APAP 325MG 1 EA TAB PO PRN (20:01)
[2016-07-21] MEDS: ENOXAPARIN SODIUM 40 MG/0.4 ML SYG SUBCU SCH (20:04)
[2016-07-21] MEDS: MELATONIN 3 MG TAB PO SCH (20:04)
[2016-07-22] MEDS: HYDROcodone 7.5MG/APAP 325MG 1 EA TAB PO PRN (00:10)
[2016-07-22] MEDS: METOPROLOL TARTRATE 25 MG TAB PO SCH ×2 (08:00→17:26)
[2016-07-22] MEDS: HYDROcodone 5MG/APAP 325MG 1 EA TAB PO PRN ×3 (08:11→20:22)
[2016-07-22] MEDS: NICOTINE PATCH 21 MG TD SCH (08:12)
[2016-07-22] MEDS: DOCUSATE SODIUM 100 MG CAP PO SCH (08:12)
[2016-07-22] MEDS: LISINOPRIL 10 MG TAB PO SCH (08:12)
[2016-07-22] MEDS: CEFDINIR 300 MG CAP PO SCH ×2 (08:12→20:22)
[2016-07-22] MEDS: ALBUTEROL SULFATE 2.5 MG/3 ML VIAL NEB SCH ×2 (08:29→21:06)
[2016-07-22] MEDS: LORazepam 1 MG TAB PO PRN ×2 (14:01→22:21)
[2016-07-22] MEDS: MELATONIN 3 MG TAB PO SCH (20:22)
[2016-07-22] MEDS: ENOXAPARIN SODIUM 40 MG/0.4 ML SYG SUBCU SCH (20:22)
[2016-07-23] MEDS: HYDROcodone 5MG/APAP 325MG 1 EA TAB PO PRN (06:07)
[2016-07-23] MEDS: METOPROLOL TARTRATE 25 MG TAB PO SCH (08:33)
[2016-07-23] MEDS: CEFDINIR 300 MG CAP PO SCH (08:34)
[2016-07-23] MEDS: LISINOPRIL 10 MG TAB PO SCH (08:34)
[2016-07-23] MEDS: NICOTINE PATCH 21 MG TD SCH (08:34)
[2016-07-23] MEDS: DOCUSATE SODIUM 100 MG CAP PO SCH (08:35)
[2016-07-23] MEDS: ALBUTEROL SULFATE 2.5 MG/3 ML VIAL NEB SCH (08:40)
[2016-07-23] MEDS ORDERED: NYSTATIN POWDER 15GM BTTL TOP SCH (09:00)
[2016-07-23] MEDS: LORazepam 1 MG TAB PO PRN (09:08)
[2016-07-23] MEDS ORDERED: HYDROCORT 2.5% CRM (ANUSOL HC) 30 GM TUBE PR PRN (09:55)
[2016-07-23] MEDS ORDERED: FLUCONAZOLE 150 MG TAB PO ONE (10:06)
[2016-07-23] MEDS ORDERED: FLUCONAZOLE 150 MG TAB ONE (11:18)
[2016-07-23] MEDS: HYDROcodone 7.5MG/APAP 325MG 1 EA TAB PO PRN (11:41)
[2016-07-23 13:05] VITALS: BP 106/75; TEMP 98.2; O2SAT 98
--- NOTE | 2016-07-25 20:26 | DS ---
SUPERVISING PHYSICIAN: Anupam Phillips M.D. DISCHARGE DIAGNOSIS: 1. Postoperative day 13 for an exploratory laparotomy and loop ileostomy secondary to perforated viscus. 2. History of recent exploratory laparotomy and sigmoid colectomy with transrectal anastomosis secondary to recurrent diverticulitis performed on 06/30/[address] Nash. 3. Recent history of peritonitis secondary to number 1. 4. Chronic obstructive pulmonary disease in a chronic smoker. 5. History of hepatitis C. 6. History of chronic nicotine addiction in a chronic smoker. 7. Loop ileostomy secondary to number 1. HISTORY OF PRESENT ILLNESS: Mr. Alarcon is a 55 year-old male patient of Dr. Nash's who on 06/30/16 had an exploratory laparotomy and sigmoid colectomy with primary transrectal anastomosis secondary to acute on chronic diverticulitis. The patient was discharged from [facility] on 07/06/16. On 07/10/16, the patient presented back to the Emergency Department in [place] complaining of abdominal pain. In the Emergency Department , CT scan of the abdomen showed that he had free intraabdominal air and there were no surgery capabilities on that day in [place]. The patient was then transferred to [facility]. At [facility], he was found to have acute peritonitis secondary to a perforated viscus anastomotic leak and had an exploratory laparotomy with a loop ileostomy. The patient recovered and did well clinically, and continues to have need for medical management to [facility] for ongoing wound care and teaching ileostomy. The patient is unable to have outpatient wound management and teaching secondary to financial reasons and is very unreliable in managing his wound at this point, therefore [facility] requested that the patient be transferred to [facility] to [facility] to assist with ongoing wound management and education prior to discharging the patient home. The patient was transferred from [facility] on day of admission, 07/20/16, and admitted to [facility]. He was stable on admission. LABORATORY: CBC on admission showed white count 12.6, hemoglobin 10.5, hematocrit 31.9, platelet count 437,000. Differential showed to be within normal limits. Chemistries showed normal electrolytes with potassium 3.9, BUN 9 , creatinine 0.6, glucose 111. Liver functions all showed to be within normal limits. Urinalysis showed to be within normal limits. MICROBIOLOGY: No microbiology specimens were submitted. RADIOLOGY: There were no radiographic studies submitted. HOSPITAL COURSE: Mr. Alarcon was admitted as noted in the History of Present Illness for wound management and ongoing education for wound care and ileostomy care. The patient was provided extensive wound management and education for the entire time he was in Swing Bed with demonstration, teaching and the patient beginning wound care prior to discharge. The patient was started on Cefdinir p.o. It was requested by [facility] that the patient have 7 days of IV antibiotics, however the patient refused to have any IV sticks, therefore he was transitioned to p.o. antibiotics. It was felt on date of discharge the patient was able to with assistance of his who is on wound care at home, as well as he was able to manage his ileostomy. He was provided supplies for at least a week and prescriptions were written for ileostomy care as well as wound management. At that point, he was discharged home. PLAN: Mr. Alarcon was discharged on 07/23/16 with instructions on wound care management. He was to have close clinical followup with Dr. Nash. To call Dr. Nash's office on Monday or Monday for scheduled time of appointment. He was instructed to resume all of his previous medications as directed and start new prescriptions to include the antibiotic and take as instructed. Wound and ostomy care instructions were provided. He was instructed to have no lifting or exercising until he was cleared by Dr. Nash, and to return to the hospital or call Dr. Nash if he had any concerning symptoms or further questions regarding his care. At discharge, prescriptions included: 1. Omnicef 300 mg twice daily, #14. 2. Anusol HC cream rectally 4 times a day as needed for hemorrhoids. 3. Nicotine patch 20 mg [id number] for smoking cessation. 4. Nystatin powder 1 topical twice daily, 1 bottle. All other prescriptions as prior to hospitalization were resumed with no change. Diet at discharge was as tolerated. Activity was as instructed to have no exercising, lifting, pulling or other strenuous exercise until he is seen by Dr. Nash. Condition at discharge was stable and improved. #[id number] [facility]
== END 2016-07-28 12:40 | disposition home or self-care (01) | DRG 950 ==
LOC: MS 14:15 → UNDODISIN 07-23 12:40
PROVIDERS: ADMIT Nurse Practitioner Family; ATTEND Nurse Practitioner Family
DX: Z48.815 Encounter for surgical aftercare following surgery on the digestive system (principal); J44.9 Chronic obstructive pulmonary disease, unspecified; B19.20 Unspecified viral hepatitis C without hepatic coma; N40.0 Benign prostatic hyperplasia without lower urinary tract symptoms; K57.30 Diverticulosis of large intestine without perforation or abscess without bleeding; F17.210 Nicotine dependence, cigarettes, uncomplicated; Z93.2 Ileostomy status; Z90.49 Acquired absence of other specified parts of digestive tract; Z79.899 Other long term (current) drug therapy

== ENCOUNTER → 2016-07-28 | Outpatient (CLI) | payer OTHER | END | disposition home or self-care (01) | LOC: LAB 16:03 | PROVIDERS: ATTEND Surgery | DX: R25.2 Cramp and spasm (principal) ==

== ENCOUNTER → 2016-08-03 | Outpatient (CLI) | payer OTHER | END | disposition home or self-care (01) | LOC: LAB.O 09:04 | PROVIDERS: ATTEND Surgery | DX: R25.2 Cramp and spasm (principal) ==

== ENCOUNTER → 2016-09-15 | Outpatient (CLI) | payer OTHER ==
--- NOTE | 2016-09-15 16:05 | RAD ---
EXAM DESCRIPTION: Barium Enema, single Contrast CLINICAL HISTORY: DIVERTICULOSIS. Ileostomy. COMPARISON: CT of the abdomen and pelvis 07/10/2016. TECHNIQUE: Preliminary help desk team leader images. Patient supine on fluoroscopic table. Barium enema tip inserted in rectum. Medium Density barium contrast introduced into the rectum in a retrograde manner under fluoroscopic visualization. Multiple fluoroscopic guided images. The enema tip was removed and patient evacuated. Additional digital radiographic images were obtained. The patient did not tolerate the procedure well, but no immediate complications. Fluoroscopy time was 2 minutes, 37 seconds. Two help desk team leader films and Eight post fluoroscopy abdominal images. 19 fluoroscopic images. FINDINGS: Surgical clips in the rectosigmoid region. 5 mm linear density superimposed over the left 12th rib could represent a rib lesion or stone in the left kidney. No distended bowel gas. Vascular calcifications in the pelvis. Surgical material in the mid pelvis. Contrast was introduced in the rectum and flowed into the cecum. Distal descending colon and sigmoid are straightened and decompressed. A loop of the sigmoid deviates laterally and posteriorly but the mucosal pattern is unremarkable. No contrast extravasation. Diverticula in the distal more than the proximal descending colon with no extravasation. No stricture or mass effect of the remaining visualized colon. IMPRESSION: Narrowing of the anastomosis of the sigmoid colon and descending colon with small loop of colon protruding posteriorly and laterally at the anastomotic site. This can be seen on the prior CT scan. Diverticulosis of the descending colon. No extravasation. Contrast flows into the cecum without obstruction. Electronically signed by: Kenneth Beltran MD 09/15/2016 4:03 PM CDT Workstation: [id number]
== END ==
LOC: RAD 08:36
PROVIDERS: ATTEND Radiology Radiation Oncology
DX: K57.31 Diverticulosis of large intestine without perforation or abscess with bleeding (principal)

== ENCOUNTER 2016-10-13 08:38 | Inpatient (IN) | payer OTHER ==
[~2016-10-13 08:38] MED LIST: ATROPINE SULFATE 0.4 MG/ML 1ML VIAL ONE; LABETALOL INJ 5 MG/ML VIAL ONE; LACTATED RINGERS 1,000 ML ONE; LIDOCAINE 2 % GEL 5 ML TUBE TOP ONE; NEOSTIGMINE METHYLSULFATE 1 MG/ML ML IV ONE; PROPOFOL 200 MG/20 ML VIAL IV ONE; ROCURONIUM BROMIDE 10 MG/ML VIAL ONE; SODIUM CHL 0.9% 100ML MINI-BAG 100 ML IVPB ONE; ceFAZolin SODIUM 1 GM VIAL ONE; fentaNYL CITRATE INJ 50 MCG/ML AMP ONE
--- NOTE | 2016-10-13 08:40 | RAD ---
EXAM DESCRIPTION: Chest,2 Views CLINICAL HISTORY: PRE-OP COMPARISON: June 28, 2016 FINDINGS: Two-view chest x-ray shows cardiomediastinal silhouette and pulmonary vasculature to be within normal limits. Mild calcifications of the thoracic aortic arch are stable. The lungs are normally aerated and clear. Costophrenic angles are sharp. Mild disc degenerative changes of the spine are seen. IMPRESSION: No radiographic evidence of acute cardiopulmonary disease. Electronically signed by: Branden Lane MD 10/13/2016 8:39 AM CDT
[2016-10-13] MEDS ORDERED: MIDAZOLAM INJ 5 MG/5 ML VIAL ONE (09:29)
--- NOTE | 2016-10-13 10:45 | HP ---
CHIEF COMPLAINT: The patient has an ileostomy and admitted for ileostomy closure. HISTORY OF PRESENT ILLNESS: The patient is a 55-year-old male who in the middle of June underwent a sigmoid colectomy for recurrent diverticulitis which interestingly revealed acute diverticulitis at the time. Approximately one week to ten days postoperatively, he developed acute onset of pain after having an extremely hard bowel movement and was found to have free air. At that time, we had no surgical team information technology advisor as it was a weekend morning and he was transferred to [facility] where he underwent exploratory laparotomy, drainage of the area where a very small, pinhole leak was identified , and ileostomy was performed. Postoperatively, he essentially did very well. He has now had an appropriate postoperative period where he has regained his weight. He underwent a barium enema late in August which revealed there was no significant stricture at the anastomotic site, although it was noted not to be at the end of his distal colon. He was brought to the Surgical Suite today and admitted for the ileostomy closure after the risks, benefits and alternatives to the procedure were discussed and accepted. PAST MEDICAL HISTORY: 1. Hepatitis C. 2. Urinary frequency. 3. Benign prostatic hypertrophy. 4. Chronic obstructive pulmonary disease. PAST SURGICAL HISTORY: 1. Appendectomy. 2. Left inguinal hernia repair. 3. Lymph nodes excised in his neck. 4. Colonoscopy. 5. The above other procedures. CURRENT MEDICATIONS: He is currently taking no medications. ALLERGIES: NO KNOWN DRUG ALLERGIES. FAMILY HISTORY: Noncontributory. SOCIAL HISTORY: The patient is unemployed. He is a longtime smoker, but is currently not smoking. There is no history of alcohol abuse recently. REVIEW OF SYSTEMS: Noncontributory. He has had no significant abdominal pain, no problems eating. He has had some problems with leakage and irritation of the skin around the ileostomy. He has had no recent weight loss, productive cough, urinary symptoms, fever, or chills. PHYSICAL EXAMINATION: GENERAL: The patient is awake, alert, cooperative, and he is anxious, but in no acute distress. VITAL SIGNS: The patient is currently afebrile, normotensive. HEENT: Sclerae nonicteric. Mucous membranes moist. NECK: Without adenopathy. BACK: Without CVA tenderness. CHEST: Equal breath sounds bilaterally without wheezing. HEART: Regular rhythm. ABDOMEN: Soft and benign. There is an ileostomy which is currently is in the ostomy bag. The ostomy is noted to be pink, but the skin is not identified at this time. RECTAL: Deferred. EXTREMITIES: Without cyanosis, clubbing or edema. ASSESSMENT: 1. Ileostomy status post leak after sigmoid colectomy, admitted for ileostomy closure. PLAN: Proceed with ileostomy closure after the risks, benefits and alternatives to the procedure were discussed and accepted. He will receive IV antibiotics perioperatively. #[id number] [facility]
[2016-10-13] MEDS ORDERED: fentaNYL CITRATE INJ 50 MCG/ML AMP ONE ×2 (11:02→13:09)
[2016-10-13] MEDS ORDERED: MORPHINE SULFATE INJ 10 MG/ML VIAL ONE (12:44)
[2016-10-13] MEDS ORDERED: MORPHINE SULFATE INJ 10 MG/ML VIAL IV ONE ×5 (12:46→13:32)
[2016-10-13] MEDS ORDERED: ONDANSETRON INJ 4 MG/2 ML VIAL IV PRN (12:47)
[2016-10-13] MEDS ORDERED: ONDANSETRON INJ 4 MG/2 ML VIAL ONE (12:49)
[2016-10-13] MEDS ORDERED: ONDANSETRON INJ 4 MG/2 ML VIAL IV ONE (12:50)
[2016-10-13] MEDS ORDERED: fentaNYL CITRATE INJ 50 MCG/ML AMP IV ONE ×2 (13:12→13:18)
--- NOTE | 2016-10-13 13:13 | OP ---
DATE OF PROCEDURE: 10/13/16 PREOPERATIVE DIAGNOSIS: 1. Ileostomy status post leak of sigmoid colectomy. POSTOPERATIVE DIAGNOSIS: 1. Ileostomy status post leak of sigmoid colectomy. PROCEDURE: 1. Resection of ileostomy and primary reanastomosis of ileum. SURGEON: Colton Nash MD. RURAL SOCIOLOGIST: None. ANESTHESIA: General endotracheal anesthesia. INDICATION: The patient is a 55-year-old male who in June underwent a sigmoid colectomy for recurrent diverticulitis which on pathological examination revealed acute diverticulitis. After he was home postoperatively and eating a regular diet, he became constipated, strained to have a bowel movement and had a sudden onset of acute diffuse abdominal pain. CT scan revealed free air and fluid. We had no operative team customer relations coordinator, so he was transferred to [facility] where he underwent exploratory laparotomy, wash-out, drainage of the area of leakage and primary anastomosis. Postoperative course was relatively unremarkable. He did become dehydrated several times with his ileostomy, but has recently gained weight and strength. He underwent a barium enema several weeks ago which revealed although a relatively small ostomy, colostomy where there was no stricture and barium was able to pass through the ileum without difficulty. He was brought to the Surgical Suite today for ileostomy closure after the risks, benefits and alternatives to the procedure were discussed and accepted. FINDINGS: There were multiple fine adhesions. Otherwise, the bowel was easily handled. No other pathology was identified. PROCEDURE: After adequate general endotracheal anesthesia was obtained, a Mercado catheter was placed. The patient was prepped and draped in the usual sterile manner. After a surgical time-out and the patient had received Ancef preoperatively, the ileostomy was closed with a pursestring of 3-0 Monocryl, both on the proximal and distal limb. An elliptical incision was fashioned around the ileostomy site, first with a marking pen and then with a knife. Sharp dissection was carried down into the subcutaneous tissue. Subcutaneous tissue was then excised using electrocautery. The subcutaneous tissue revealed that the ileum had not adhesed to the subcutaneous tissue except in a few places. These were lysed carefully, but without significant difficulty. When this was done, the ileostomy fascial incision was explored digitally. A few loose adhesions were lysed and this allowed us to free up the bowel easily. At this point, after the adhesions had been lysed, the small bowel was transected proximally and distally using a NATHANIEL stapling device. The two limbs were sutured [id number] with 3-0 Prolene sutures. Enterostomies were made just proximal to the staple lines on both sides. An endo-NATHANIEL was introduced through the two limbs and the two limbs were stapled together in a [id number] functional end-to-end anastomosis. The enterostomy was closed with a running Dana suture of 3-0 Monocryl and then interrupted Lembert sutures of 3-0 Prolene. The ileum was then irrigated copiously with saline. Hemostasis was noted to be adequate. There was a small area where the mesentery was open. This was closed with a single simple suture of 3-0 Prolene. The ileum was then dropped back into the abdomen. The fascia was then closed with interrupted [id number] sutures of #1 PDS. These were placed initially and then tightened and tied sequentially. When this was done, subcutaneous tissues were irrigated copiously with saline. Some debridement of adhesive tissue was done and then the wound was closed loosely with interrupted 0 Prolene vertical mattress sutures. Telfa madhuri were placed between the sutures. A sterile pressure dressing was applied. The patient tolerated the procedure well. Estimated blood loss was 150 mL. The patient was awakened and taken to the Recovery Room in stable condition. All sponge, needle and instrument counts were correct. #[id number] [facility]
[2016-10-13] MEDS: HYDROmorphone HCL INJ 2 MG/ML VIAL IV PRN ×4 (15:36→22:10)
[2016-10-13] MEDS ORDERED: ceFAZolin SODIUM 2 GM in SODIUM CHLORIDE 0.9% 100ML 100 ML IVPB SCH (16:00)
[2016-10-13] MEDS ORDERED: CEFAZOLIN SODIUM 2 GRAM IV 50 ML IVPB ONE ×2 (17:23→19:32)
[2016-10-13] MEDS: CEFAZOLIN SODIUM 2 GRAM IV 2 GM in PREMIX BAG 1 BAG IVPB SCH (17:25)
[2016-10-13] MEDS ORDERED: ALBUTEROL SULFATE 2.5 MG/3 ML VIAL NEB PRN (18:30)
[2016-10-13] MEDS ORDERED: PANTOPRAZOLE SODIUM TAB 40 MG PO ONE (19:31)
[2016-10-13] MEDS: IPRATROPIUM/ALBUTEROL 3 ML VIAL NEB SCH (20:50)
[2016-10-13] MEDS: LACTATED RINGERS 1,000 ML IVS PRN (20:50)
[2016-10-14] MEDS: HYDROmorphone HCL INJ 2 MG/ML VIAL IV PRN ×7 (02:08→22:07)
[2016-10-14] MEDS: LACTATED RINGERS 1,000 ML IVS PRN ×3 (03:27→17:56)
[2016-10-14] MEDS ORDERED: METOCLOPRAMIDE HCL INJ 10 MG/2 ML VIAL IV ONE (03:32)
[2016-10-14] MEDS: PANTOPRAZOLE SODIUM TAB 40 MG PO SCH (06:00)
--- NOTE | 2016-10-14 08:06 | CONS ---
SUPERVISING PHYSICIAN: Nilson Myles MD DATE OF CONSULTATION: 10/13/16 CHIEF COMPLAINT: Surgical closure of ileostomy per Dr. Nash, general surgeon. HISTORY OF PRESENT ILLNESS: This is a 55-year-old male who in June of this year underwent a sigmoid colectomy for recurrent diverticulitis per Dr. Nash, general surgeon. About one week after his surgery, he developed an acute onset of pain and was found to have free air in the bowel. At that time, there was no surgical team and he was transported to [facility] where he underwent an exploratory laparotomy with drainage of the area where a very small pinhole leak was identified and ileostomy was performed. Postoperatively , he did very well. He came back to [facility] for Swing Bed admission and for strengthening and conditioning as well as ileostomy education for care. He underwent an appropriate postoperative period. Dr. Nash ordered a barium enema late in August which revealed there was no significant stricture at the anastomotic site. He was admitted to the hospital today for ileostomy closure per Dr. Nash, general surgeon. PAST MEDICAL HISTORY: 1. History of diverticulosis, multiple episodes of diverticulitis and chronic left lower quadrant pain requiring a colectomy performed on 06/30/16. 2. Hepatitis C. 3. Chronic smoker with a history of chronic obstructive pulmonary disease. 4. Benign prostatic hypertrophy. PAST SURGICAL HISTORY: 1. Appendectomy. 2. Hernia repair. 3. Right cervical node repair. 4. Sigmoid colectomy with transrectal anastomosis secondary to diverticulitis performed on 06/30/[address] Nash. 5. Exploratory laparotomy with a loop ileostomy secondary to perforated viscus on 07/10/16, performed Dr. Chaim Elkins in [place]. CURRENT MEDICATIONS: The patient is currently on no medications. ALLERGIES: NO KNOWN DRUG ALLERGIES. SOCIAL HISTORY: He is current unemployed. He has a long history of smoking, but at the present time has not been smoking for several months. He has a history of intravenous drug use as well as alcohol abuse, but at this time, he denies any ETOH or illicit drug use. REVIEW OF SYSTEMS: GENERAL: Denies fever or chills. HEENT: Denies hearing problems, sinus symptoms or vision changes. RESPIRATORY: Denies wheezing, coughing or shortness of breath. CARDIAC: Denies chest pain, palpitations or tachycardia. GASTROINTESTINAL: Per history of present illness. GENITOURINARY: Denies hematuria, dysuria or nocturia. EXTREMITIES: Denies edema. NEUROLOGIC: Denies headache, weakness, or seizures. PHYSICAL EXAMINATION: VITAL SIGNS: Afebrile. Heart rate 74. Blood pressure 152/76. Respiratory rate 16. O2 saturation 98%. GENERAL: This is a 55-year-old, male patient who I am seeing postoperatively. He is awake and is in no acute distress. HEENT: Normocephalic, atraumatic. Pupils are equal and reactive. Oropharynx is clear. Oral mucous membranes are moist. NECK: Supple without mass. RESPIRATORY: Clear to auscultation bilaterally. CHEST: There is equal rise and fall of the chest with inspiration and expiration. CARDIOVASCULAR: Regular rate and rhythm. ABDOMEN: Soft, nondistended. He has a surgical dressing to the right side of his abdomen. There is a very small amount of serosanguineous drainage to the dressing. Bowel sounds are somewhat hypoactive. He does have a Mercado catheter in place. EXTREMITIES: No cyanosis, clubbing or edema. LABORATORY: WBC 10.7, hemoglobin 13.7, hematocrit 41.3, platelet count 268. Metabolic panel is within normal limits. Urinalysis is within normal limits. Chest x-ray shows no radiographic evidence of acute cardiopulmonary disease. All other labs and films have been reviewed via the EMR. ASSESSMENT: 1. Ileostomy closure from prior ileostomy performed by Dr. Colton Nash, general surgeon, postoperative day 0. 2. Chronic obstructive pulmonary disease. 3. History of hepatitis C. 4. Benign prostatic hypertrophy. PLAN: We will continue present supportive care. I have ordered a CBC for in the morning. I have also ordered some breathing treatments as well as bronchial hygiene. Surgical issues will be per Dr. Nash. He does not have any home medications at this time. We will continue to monitor the patient closely and follow as needed. Dr. Myles is the collaborating physician and available for consultation. #[id number] [facility]
[2016-10-14] MEDS: IPRATROPIUM/ALBUTEROL 3 ML VIAL NEB SCH ×4 (08:20→20:12)
[2016-10-14] MEDS ORDERED: CEFAZOLIN SODIUM 2 GRAM IV 50 ML IVPB ONE (08:39)
[2016-10-14] MEDS ORDERED: MAGNESIUM HYDROXIDE 30 ML UD PO ONE (08:46)
[2016-10-14] MEDS: ENOXAPARIN SODIUM 40 MG/0.4 ML SYG SUBCU SCH (09:14)
[2016-10-14] MEDS: CEFAZOLIN SODIUM 2 GRAM IV 2 GM in PREMIX BAG 1 BAG IVPB SCH ×2 (09:14)
--- NOTE | 2016-10-14 18:21 | PN ---
DATE: 10/14/16 SUPERVISING PHYSICIAN: Nilson Myles M.D. SUBJECTIVE: The patient is walking in the hallways. He does complain of some abdominal pain, but otherwise no complaints of shortness of breath, chest pain, nausea, vomiting or diarrhea. OBJECTIVE: VITAL SIGNS: He is afebrile, heart rate ranges from 85 to 106, blood pressure is 123/67, respiratory rate 20, O2 sat is 91% on room air. RESPIRATORY: Essentially clear to auscultation bilaterally. CARDIAC: Regular rate and rhythm. ABDOMEN: Soft. He does have a dressing to the right side of his abdomen that has some old blood, but otherwise is dry and intact. Bowel sounds are positive. EXTREMITIES: No cyanosis, clubbing or edema. NEUROLOGIC: He is awake, alert and oriented times three. LABORATORY: WBCs have slightly elevated to 13.3 with a stable hemoglobin and hematocrit of 12.7 and 38.3. Neutrophils are normal at 75.2%. His metabolic panel is basically within normal limits. All other labs and films have been reviewed via the EMR. ASSESSMENT: 1. Ileostomy closure from prior ileostomy performed by Dr. Colton Nash, general surgeon, postoperative day #1. 2. Chronic obstructive pulmonary disease. 3. History of hepatitis C. 4. Benign prostatic hypertrophy. PLAN: We will continue present supportive care. I have encouraged good pulmonary hygiene. Dr. Nash has ordered lab for tomorrow. I will defer surgical issues per Dr. Nash. We will continue to monitor the patient closely and follow as needed. If any medications need to be ordered for the patient after discharge, it will need to be done through [place] [facility]. Dr. Myles is the collaborating physician and available for consultation. #[id number] [facility]
[2016-10-14] MEDS: HYDROcodone 7.5MG/APAP 325MG 1 EA TAB PO PRN ×2 (21:30)
[2016-10-15] MEDS: HYDROmorphone HCL INJ 2 MG/ML VIAL IV PRN ×7 (02:06→21:26)
[2016-10-15] MEDS ORDERED: METOCLOPRAMIDE HCL INJ 10 MG/2 ML VIAL IV ONE (02:22)
[2016-10-15] MEDS: LACTATED RINGERS 1,000 ML IVS PRN ×4 (06:09→20:24)
[2016-10-15] MEDS: PANTOPRAZOLE SODIUM TAB 40 MG PO SCH (06:09)
[2016-10-15] MEDS: ENOXAPARIN SODIUM 40 MG/0.4 ML SYG SUBCU SCH (08:12)
[2016-10-15] MEDS: IV SET AND CAP CHANGE INJ INJ SCH (08:28)
[2016-10-15] MEDS: IPRATROPIUM/ALBUTEROL 3 ML VIAL NEB SCH ×4 (08:40→19:25)
[2016-10-15] MEDS ORDERED: BISACODYL SUPPOSITORY 10 MG PR ONE (11:38)
[2016-10-15] MEDS ORDERED: KETOROLAC TROMETHAMINE INJ 30 MG/ML VIAL IV ONE (11:39)
--- NOTE | 2016-10-15 20:26 | PN ---
DATE: 10/15/16 SUPERVISING PHYSICIAN: Nilson Myles M.D. SUBJECTIVE: The patient continues to do well. He has been ambulating without assistance. His pain has been fairly well controlled. Still using Dilaudid. He remains afebrile. OBJECTIVE: VITAL SIGNS: T max 99.7, pulse 95, blood pressure 146/80, respirations 15, showing O2 saturation on room air at 93% at rest. I's and O's show a positive balance of 2213 with 1563 in, 2950 out. He has had 1 bowel movement. Weight is 87.5 kg. CHEST: Lungs are clear to auscultation. HEART: Regular rate and rhythm. ABDOMEN: Dressing remains in place overlying the right abdominal wall. It is clean and dry. Bowel sounds are present. EXTREMITIES: No clubbing, cyanosis or edema. NEUROLOGIC: He is alert and oriented times three. LABORATORY: White count shows improvement down to 11.0, hemoglobin and hematocrit are stabilized at 11.3 and 33.9 with platelet count of 216,000. Differential today does show a left shift, although absolute neutrophil count is less than the previous day. Chemistries show normal electrolytes yesterday with no repeated chemistries today. ASSESSMENT: 1. Ileostomy closure from prior ileostomy performed by Dr. Nash, general surgeon, postoperative day 2. 2. Chronic obstructive pulmonary disease. 3. History of hepatitis C. 4. Benign prostatic hypertrophy. PLAN: Will continue to follow the patient as he recovers postoperatively and defer surgical decisions to Dr. Nash. Will continue to encourage good pulmonary hygiene to prevent any postoperative complications. He is ambulating. Dr. Nash, I believe, today is going to start him on Align and to have some liquids. He has had some bowel movements and lots of gas. Will continue to monitor the patient closely and treat appropriately until discharge. Once discharged, it need to be noted that any medications at discharge need to be completed through the [place]. #[id number] [facility]
[2016-10-15] MEDS ORDERED: TEMAZEPAM 15 MG CAP PO PRN (23:27)
[2016-10-16] MEDS: HYDROmorphone HCL INJ 2 MG/ML VIAL IV PRN ×4 (01:26→20:39)
[2016-10-16] MEDS: PANTOPRAZOLE SODIUM TAB 40 MG PO SCH (05:59)
[2016-10-16] MEDS: SODIUM CHLORIDE 0.9% (FLUSH) 10 ML SYG IV PRN ×3 (07:45→20:42)
[2016-10-16] MEDS: ENOXAPARIN SODIUM 40 MG/0.4 ML SYG SUBCU SCH (08:31)
[2016-10-16] MEDS: IPRATROPIUM/ALBUTEROL 3 ML VIAL NEB SCH ×4 (08:40→20:45)
[2016-10-16] MEDS: LACTATED RINGERS 1,000 ML IVS PRN (09:49)
[2016-10-16] MEDS: LISINOPRIL 10 MG TAB PO SCH (09:55)
[2016-10-16] MEDS: HYDROcodone 7.5MG/APAP 325MG 1 EA TAB PO PRN (15:06)
--- NOTE | 2016-10-16 16:19 | PN ---
DATE: 10/16/16 SUPERVISING PHYSICIAN: Nilson Myles M.D. SUBJECTIVE: The patient continues to ambulate and has fairly well control of his pain. Still requiring some Dilaudid p.r.n. He is tolerating a diet. He has been afebrile. He is having bowel movements and gas. OBJECTIVE: VITAL SIGNS: Temperature 97.0, pulse 86, blood pressure 126/77, respirations 18, satting 97% on room air. I's and O's show a positive balance of 945 with 2340 in, 2395 out. Weight 87.5 kg. CHEST: Lungs are clear to auscultation bilaterally. HEART: Regular rate and rhythm. ABDOMEN: Soft with dressing overlying the right quadrant that is clean, dry and intact. Bowel sounds are present. NEUROLOGIC: He is alert and oriented times three. LABORATORY: No additional laboratory studies were completed. RADIOLOGY: No additional studies were noted. ASSESSMENT: 1. Ileostomy closure from a prior ileostomy performed by Dr. Nash, general surgeon, postoperative day 3. 2. Chronic obstructive pulmonary disease. 3. Hypertension requiring further medication management. 4. History of hepatitis C. 5. Benign prostatic hypertrophy. PLAN: Will continue to follow the patient. He is showing some slight increase in his blood pressures and has been previously on blood pressure medicines prior to admission, but he quit taking his medications. I will initiate Lisinopril 10 mg daily and monitor blood pressures closely. He was again encouraged to ambulate. Will defer all other surgical postoperative decisions to Dr. Nash regarding diet and ultimately discharge planning. Until then, will continue to monitor and treat appropriately. #[id number] [facility]
[2016-10-17] MEDS: HYDROcodone 7.5MG/APAP 325MG 1 EA TAB PO PRN ×4 (00:07→20:58)
[2016-10-17] MEDS: PANTOPRAZOLE SODIUM TAB 40 MG PO SCH (07:11)
[2016-10-17] MEDS ORDERED: POTASSIUM CHLORIDE 20 MEQ TAB PO ONE (08:24)
[2016-10-17] MEDS: IPRATROPIUM/ALBUTEROL 3 ML VIAL NEB SCH ×3 (08:45→17:04)
[2016-10-17] MEDS ORDERED: MAGNESIUM HYDROXIDE 30 ML UD PO ONE (08:54)
[2016-10-17] MEDS: LISINOPRIL 10 MG TAB PO SCH (08:59)
[2016-10-17] MEDS: ENOXAPARIN SODIUM 40 MG/0.4 ML SYG SUBCU SCH (08:59)
[2016-10-17] MEDS ORDERED: LORazepam 0.5 MG TAB PO SCH (21:00)
[2016-10-18] MEDS: HYDROcodone 7.5MG/APAP 325MG 1 EA TAB PO PRN ×3 (04:32→12:29)
[2016-10-18 05:19] VITALS: O2SAT 97
[2016-10-18] MEDS: PANTOPRAZOLE SODIUM TAB 40 MG PO SCH (05:50)
[2016-10-18] MEDS: IV SET AND CAP CHANGE INJ INJ SCH (07:49)
[2016-10-18] MEDS: LISINOPRIL 10 MG TAB PO SCH (08:25)
[2016-10-18] MEDS: ENOXAPARIN SODIUM 40 MG/0.4 ML SYG SUBCU SCH (08:25)
[2016-10-18 10:03] VITALS: BP 136/75; TEMP 97.7
[2016-10-18] MEDS ORDERED: POTASSIUM CHLORIDE 20 MEQ TAB PO ONE (10:04)
[2016-10-18] MEDS ORDERED: POTASSIUM CHLORIDE 20 MEQ TAB ONE (10:14)
--- NOTE | 2016-10-18 14:41 | DS ---
FINAL DIAGNOSIS: 1. Ileostomy. SURGICAL PROCEDURE: Ileostomy closure with small bowel resection and primary anastomosis on 10/13/16. HISTORY OF PRESENT ILLNESS: The patient is a 55-year-old male who in the middle of June underwent a sigmoid colectomy for recurrent diverticulitis which interestingly revealed acute diverticulitis at the time. Approximately one week to ten days postoperatively, he developed acute onset of pain after having an extremely hard bowel movement and was found to have free air. 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 Postoperatively, he essentially did very well. He has now had an appropriate postoperative period where he has regained his weight. He underwent a barium enema late in August which revealed there was no significant stricture at the anastomotic site, although it was noted not to be at the end of his distal colon. He was brought to the Surgical Suite today and admitted for the ileostomy closure after the risks, benefits and alternatives to the procedure were discussed and accepted. LABORATORY: On the date of discharge, the patient's potassium was 3.1. The day prior to discharge, his white blood cell count was 6.8 with a hemoglobin of 10.8, creatinine 0.82. He had a normal differential and platelet count was 204, 000. Pathology is pending. HOSPITAL COURSE: The patient was admitted to the Surgical Suite on 10/13/16 where he underwent the ileostomy closure. By the first postoperative day, his T -max was a little over 99. His vital signs were stable. His urine output was adequate. He had a small amount of emesis. He complained of pain and nausea. He was left on clear liquids. His Mercado catheter was discontinued. His antibiotics were discontinued. He continued with IV hydration and gotten out of bed. On the second postoperative day, T-max was 99.8. Vital signs were stable. He again had small emesis. His urine output was quite large. He still complained of pain and nausea. The abdomen had decreased bowel sounds. Drainage was moderate and serosanguineous. The madhuri were advanced. Hemoglobin was stable. White count was down to 11,000. He was continued on clear liquids, ambulation. By the third postoperative day, he continued to have temperatures over 99. His blood pressure was noted to be elevated. He had multiple stools after taking Milk of Magnesia. He had some scrotal edema which had resolved after elevation. His IV fluids were decreased. His diet was advanced and his madhuri were advanced. By the fourth postoperative day, he was tolerating a full liquid diet, having flatus. He was feeling much better with no pain medicines overnight. His abdomen had adequate bowel sounds. Drainage was moderate and serous. White count was normal. Potassium was 2.93. He was given 2 doses of 40 mEq of potassium orally. He was advanced to a low residue, mechanically soft diet, which he tolerated on 10/18/16 and he was discharged home. CONDITION ON DISCHARGE: Improved. PROGNOSIS: Excellent. DISPOSITION: The patient is to followup in my office in 6 to 8 days. He was discharged on a mechanically soft diet. He was told to push fluids. He was told to ambulate, do no lifting or exercise. He was told he can shower, but not tub bath and he is discharged with prescriptions for lisinopril, potassium and [place]. He was instructed to call me sooner if he develops nausea, vomiting , fever, chills or has other problems. #[id number] [facility]
== END 2016-10-18 12:45 | disposition home or self-care (01) | DRG 331 ==
LOC: AMB 08:38 → MS 14:10
PROVIDERS: ADMIT Nurse Practitioner Acute Care; ATTEND Nurse Practitioner Acute Care
PROC: 0DQB0ZZ Repair Ileum, Open Approach (ICD-10-PCS; principal; 2016-10-13 10:07)
DX: Z43.2 Encounter for attention to ileostomy (principal); N40.1 Benign prostatic hyperplasia with lower urinary tract symptoms; R35.0 Frequency of micturition; G89.29 Other chronic pain; M54.9 Dorsalgia, unspecified; J44.9 Chronic obstructive pulmonary disease, unspecified; M25.519 Pain in unspecified shoulder; F41.9 Anxiety disorder, unspecified; B19.20 Unspecified viral hepatitis C without hepatic coma; I10 Essential (primary) hypertension; F17.290 Nicotine dependence, other tobacco product, uncomplicated

== ENCOUNTER → 2016-10-27 | Outpatient (CLI) | payer SELFPAY ==
--- NOTE | 2016-10-28 13:28 | RAD ---
EXAM DESCRIPTION: Abdomen Flat Upright CLINICAL HISTORY: 55 years Male, ILEOSTOMY REVERSAL, ABDOMINAL PAIN COMPARISON: July 05, 2016 FINDINGS: Upright view of the abdomen demonstrates no free abdominal air or basilar lung disease. Bowel gas pattern is normal with scattered small amounts of small bowel gas and normal colonic gas. Surgical anastomotic site in the central pelvis is noted. A small irregular metallic density overlies the pelvis and likely represents a deformed or residual stable in the anterior soft tissues of the pelvis from a previous staple row seen in June examination. An ingested foreign body is thought less likely. No obstruction or ileus or unusual calcification is seen. IMPRESSION: Nonspecific abdomen two views without obstruction. There is likely a remaining cutaneous or immediate subcutaneous staple overlying the anterior central pelvis. Electronically signed by: Nilson Ruvalcaba MD 10/28/2016 1:27 PM CDT
== END ==
LOC: RAD 15:52
PROVIDERS: ATTEND Surgery
DX: R10.9 Unspecified abdominal pain (principal)

== ENCOUNTER 2016-12-08 09:01 | Emergency (ER) | payer SELFPAY ==
[2016-12-08 09:12] VITALS: TEMP 98.4
[2016-12-08] MEDS ORDERED: HYDROmorphone HCL INJ 2 MG/ML VIAL IV ONE ×5 (09:19→13:13)
[2016-12-08] MEDS ORDERED: KETOROLAC TROMETHAMINE INJ 30 MG/ML VIAL IV ONE (09:19)
--- NOTE | 2016-12-08 10:22 | CT ---
EXAM DESCRIPTION: Abdomen/Pelvis w/o Contrast CLINICAL HISTORY: severe abd pain 12 hrs, recent surgeries COMPARISON: CT abdomen and pelvis 07/10/2016. TECHNIQUE: Spiral-axial scans 5 x 5 mm intervals through the abdomen and pelvis without oral or IV contrast. Coronal and sagittal 2.0 mm reconstructions. Total Exam DLP: 765.95 mGy-cm. This exam was performed according to our departmental CT dose-optimization program which includes automated exposure control, adjustment of the mA and/or kV according to patient size and/or use of iterative reconstruction technique; to reduce radiation dose to as low as reasonably achievable (ALARA). FINDINGS: Lung bases and pleura: Unremarkable. Liver, stomach, spleen, and adrenal glands: Unremarkable. Pancreas, Gallbladder, and Ducts: Gallbladder visualized. No fluid in Morison's pouch. Duct and pancreas are negative. Kidneys and Ureters: 1.2 mm radiodense mass on the anterior left kidney stable in size from the prior study. 2.4 cm radiodense mass on the medial upper pole of the right kidney. Stable from the prior study. No hydronephrosis or radiodense stones bilaterally. Ureters are unremarkable. Mesentery: No ascites. No free fluid in the abdomen or pelvis. No free air. No mesenteric stranding or fascial thickening. Aorta: Moderate atherosclerotic calcification extending in the common iliac arteries bilaterally. Calcification of the ostia of the single left renal artery. Small Bowel: Containing gas and fluid with no wall thickening. Suture material also abutting the distal ileum. Terminal Ileum/Cecum: Surgical clearance sutures at the cecum and TI. Appendix not seen. Colon: Gas and fecal material. Suture material and possible anastomosis at the rectosigmoid. No evidence of obstruction. Pelvic Organs: No radiodense stones in the urinary bladder. Enlarged prostate gland impresses into the base of the bladder. Right paracentral calcification. Minimal seminal vesicle displacement. No fluid in the anterior peritoneal reflection. Spine and Bony Pelvis: Spondylosis at multiple levels of the lumbar spine L3-4 and L4-5 in particular. Foraminal narrowing. No bone destruction. Minimal degenerative changes in the acetabula bilaterally. Abdominal Wall/Back Soft Tissues: Fatty inguinal hernia on the left not containing bowel. Surgical changes in the lower anterior abdominal wall subcutaneous tissues and also in the midline abdomen. IMPRESSION: 1. No bowel obstruction, no free air or free fluid. Inflammatory process with free air and diverticulitis in the lower descending colon has resolved since the prior study. Previous surgical sites in the bowel are unremarkable. No abnormal fluid or fatty stranding or fascial thickening. 2. 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 3. Enlarged prostate gland impressing on the base of the urinary bladder. This was also seen on the prior study. 4. Stable fatty left inguinal hernia not containing bowel. Electronically signed by: Kenneth Beltran MD 12/08/2016 10:20 AM CDT
[2016-12-08] MEDS ORDERED: SODIUM CHLORIDE 0.9% 1000ML 1,000 ML IVS ONE (10:28)
[2016-12-08] MEDS ORDERED: ALUMINUM & MAGNESIUM HYDROXIDE 30 ML UD PO ONE (11:21)
[2016-12-08] MEDS ORDERED: HYDROcodone 7.5MG/APAP 325MG 1 EA TAB PO ONE (11:21)
--- NOTE | 2016-12-08 11:50 | RAD ---
EXAM DESCRIPTION: Chest,2 Views CLINICAL HISTORY: cough, abd pain COMPARISON: October 12, 2016 TECHNIQUE: PA/lateral FINDINGS: There is no cardiac or pulmonary abnormality. The lungs are clear. There is no effusion. IMPRESSION: 1. Normal two-view chest. Electronically signed by: Joshua Dale MD 12/08/2016 11:49 AM CDT
[2016-12-08 12:53] VITALS: O2SAT 93
--- NOTE | 2016-12-08 13:16 | ED.PDOC ---
History of Present Illness - General Chief Complaint: Abdominal Pain Stated Complaint: abdominal pain Time Seen by Provider: 12/08/16 09:07 Information Source: patient Exam Limitations: no limitations - History of Present Illness Initial Comments: The patient is a 56-year-old male presenting to the emergency room secondary to abdominal pain. The abdominal pain is rather diffuse upon arrival. The patient gives a couple of different stories as to the start of the abdominal pain depending on who is talking to. He told me that the pain started around 9:30 last night and fairly abruptly. He told our general surgeon that it started around 2 AM last night after coughing. The patient has had multiple abdominal surgeries in the past 3 months secondary to a bowel resection related to diverticulitis that was followed by perforation with ileostomy placement and then subsequent reanastomosis. the patient is initially rolling around in pain. He apparently does have a history of opiate abuse and drug-seeking behaviors. The patient is quite demonstrative and given his history this makes it difficult to assess his true pain level. The patient reports that he did have a bowel movement last night. He has had some nausea but no vomiting. No fevers. No blood in the stool. The bandage over his healing ileostomy repair site has only very trace amount of blood on it. The patient has quite a bit of voluntary guarding but no obvious involuntary guarding. He reports the worst of this pain seems to be around his centralsurgical site. There is no surrounding erythema. Abdominal Pain Onset Location: other Pain Radiation: other Quality: severe Timing/Duration: 7-24 hours Improving Factors: medication - opiate meds Worsening Factors: movement Associated Symptoms: denies symptoms Review of Systems - Review of Systems Constitutional: States: malaise EENTM: States: no symptoms reported Respiratory: States: no symptoms reported Cardiology: States: no symptoms reported Gastrointestinal/Abdominal: States: see HPI Genitourinary: States: no symptoms reported Musculoskeletal: States: no symptoms reported Skin: States: no symptoms reported Neurological: States: anxiety Endocrine: States: no symptoms reported Hematologic/Lymphatic: States: no symptoms reported All other Systems: No Change from Baseline Past Medical History (General) - Patient Medical History Hx Seizures: No Hx Stroke: No Hx Dementia: No Hx Asthma: No Hx of COPD: Yes Hx Cardiac Disorders: No Hx Congestive Heart Failure: No Hx Pacemaker: No Hx Hypertension: Yes Hx Thyroid Disease: No Hx Diabetes: No Hx Gastroesophageal Reflux: No Hx Renal Disease: No Hx Cancer: No Hx of HIV: No Hx Hepatitis C: Yes Hx MRSA: No - Vaccination History Hx Tetanus, Diphtheria Vaccination: No Hx Influenza Vaccination: No Hx Pneumococcal Vaccination: No - Social History Hx Tobacco Use: Yes Hx Chewing Tobacco Use: No Hx Alcohol Use: No Hx Substance Use: No Hx Substance Use Treatment: No Hx Depression: No Hx Physical Abuse: No Hx Emotional Abuse: No Hx Suspected Abuse: No - Female History Patient : No Family Medical History - Family History Mother Family History: Unknown Living Status: Cause of : cardiac disease Hx Cardiac Disease: Yes Hx Family;Other: Liver disease Physical Exam - Physical Exam General Appearance: Alert, Anxious Eyes, Ears, Nose, Throat Exam: PERRL/EOMI, normal ENT inspection, TMs normal Neck: non-tender, full range of motion, supple Respiratory: chest non-tender, lungs clear, normal breath sounds, no respiratory distress, no accessory muscle use Cardiovascular/Chest: normal peripheral pulses, regular rate, rhythm, no edema Peripheral Pulses: 2+ Gastrointestinal/Abdominal: other - ee history of present illness Rectal Exam: deferred Back Exam: normal inspection, no CVA tenderness, no vertebral tenderness Extremity: normal range of motion, non-tender, normal inspection, no pedal edema , normal capillary refill Neurologic: spring former II-XII nml as tested, no motor/sensory deficits - he patient is extremely anxious and very demonstrative, alert, oriented x 3 Skin Exam: normal color Comments: Vital Signs - 24 hr 12/08/16 12/08/16 12/08/16 09:09 09:53 10:15 Temperature 98.4 F Pulse Rate [ 76 76 75 Left Brachial] Respiratory 16 24 24 Rate Blood Pressure 196/94 185/89 208/109 [Left Arm] O2 Sat by Pulse 99 97 92 L Oximetry 12/08/16 12/08/16 12/08/16 10:47 11:01 11:42 Temperature Pulse Rate [ 72 72 79 Left Brachial] Respiratory 20 20 20 Rate Blood Pressure 178/92 178/87 182/97 [Left Arm] O2 Sat by Pulse 92 L 94 L 92 L Oximetry 12/08/16 12:45 Temperature Pulse Rate [ 72 Left Brachial] Respiratory 16 Rate Blood Pressure 176/89 [Left Arm] O2 Sat by Pulse 93 L Oximetry Progress - Progress Progress: 12/08/16 13:19 the patient's a 56-year-old male presenting to the emergency room secondary to abdominal pain that started this morning. The patient has been seen by his general surgeon here who has reviewed the patient's lab work and CT scan. There does not appear to be any evidence of any recurrent infection, bowel perforation or obstruction. No evidence of any incarcerated hernia. The most likely cause for the patient's discomfort is a strain at the surgical site from coughing. The patient has received some IV fluids and pain medications here. He will be written for some Fioricet for as needed use. He should follow -up with his primary care doctor tomorrow for reevaluation before the weekend. The patient will be allowed to be discharged. ER warnings were given. - Results/Orders Results/Orders: 12/08/16 09:30 BLOOD CULTURE Stat Laboratory Results - last 24 hr 12/08/16 12/08/16 12/08/16 09:19 09:30 09:30 WBC 11.4 H RBC 4.95 Hgb 14.3 Hct 43.4 MCV 87.6 MCH 28.8 MCHC 33.0 RDW 14.4 Plt Count 314 MPV 7.4 Absolute Neuts (auto) 7.50 H Absolute Lymphs (auto) 2.80 Absolute Monos (auto) 0.80 Absolute Eos (auto) 0.20 Absolute Basos (auto) 0.10 Neutrophils % 65.6 Lymphocytes % 24.2 Monocytes % 7.3 Eosinophils % 2.0 Basophils % 0.9 PT 10.7 INR 0.950 PTT (SP) 31.4 Sodium 135 Potassium 4.4 Chloride 101 Carbon Dioxide 24 Anion Gap 14.4 BUN 14 Creatinine 0.77 BUN/Creatinine Ratio 18.2 Random Glucose 123 H Serum Osmolality 271.9 L Lactic Acid Calcium 8.9 Total Bilirubin 0.2 AST 20 ALT 11 Alkaline Phosphatase 75 Creatine Kinase 167 CK-MB (CK-2) 2.5 CK-MB (CK-2) % Not Reportable Troponin I < 0.02 Serum Total Protein 8.1 Albumin 4.1 Globulin 4.0 H Albumin/Globulin Ratio 1.0 L Amylase 37 Lipase 23 Urine Color Urine Appearance Urine pH Ur Specific [place] Urine Protein Urine Glucose (UA) Urine Ketones Urine Blood Urine Nitrite Urine Bilirubin Urine Urobilinogen Ur Leukocyte Esterase Urine RBC Urine WBC Ur Epithelial Cells Urine Bacteria 12/08/16 12/08/16 09:30 09:42 WBC RBC Hgb Hct MCV MCH MCHC RDW Plt Count MPV Absolute Neuts (auto) Absolute Lymphs (auto) Absolute Monos (auto) Absolute Eos (auto) Absolute Basos (auto) Neutrophils % Lymphocytes % Monocytes % Eosinophils % Basophils % PT INR PTT (SP) Sodium Potassium Chloride Carbon Dioxide Anion Gap BUN Creatinine BUN/Creatinine Ratio Random Glucose Serum Osmolality Lactic Acid 2.3 H Calcium Total Bilirubin AST ALT Alkaline Phosphatase Creatine Kinase CK-MB (CK-2) CK-MB (CK-2) % Troponin I Serum Total Protein Albumin Globulin Albumin/Globulin Ratio Amylase Lipase Urine Color Yellow Urine Appearance Clear Urine pH 5.0 Ur Specific [place] 1.010 Urine Protein Negative Urine Glucose (UA) Negative Urine Ketones Negative Urine Blood Trace-intact H Urine Nitrite Negative Urine Bilirubin Negative Urine Urobilinogen 0.2 Ur Leukocyte Esterase Negative Urine RBC 0-1 Urine WBC 0 Ur Epithelial Cells [address] scan of abdomen and pelvis shows no definite new pathology. He has old hernias did not appear to be incarcerated. No evidence of bowel wall thickening. No obstruction. No free air. No obvious cause for any new pain. Chest x-ray appears essentially clear. Departure - Departure Clinical Impression: Abdominal wall strain Qualifiers: Encounter type: initial encounter Qualified Code(s): S39.011A - Strain of muscle, fascia and tendon of abdomen, initial encounter Disposition: Discharge to Home or Self Care Condition: Fair Departure Forms: ED Discharge - Pt. Copy, Patient Portal Self Enrollment Diet: regular diet - high-fiber diet Activity: increase activity as tolerated Referrals: Colton aNsh MD [Primary Care Provider] - 1-2 Weeks Prescriptions: Zzipwotciftja-Ffrd-Oybztgyhyi [Fioricet] 1 ea PO Q8H PRN #21 tab PRN Reason: Pain Home Medications: Ambulatory Orders Eoticnqupbjjn-Axgl-Ngfawmpfnx [Fioricet] 1 ea PO Q8H PRN #21 tab 12/08/16 Polyethylene Glycol 3350 [Miralax] 17 gm PO BID 12/08/16 Additional Instructions: the patient's a 56-year-old male presenting to the emergency room secondary to abdominal pain that started this morning. The patient has been seen by his general surgeon here who has reviewed the patient's lab work and CT scan. There does not appear to be any evidence of any recurrent infection, bowel perforation or obstruction. No evidence of any incarcerated hernia. The most likely cause for the patient's discomfort is a strain at the surgical site from coughing. The patient has received some IV fluids and pain medications here. He will be written for some Fioricet for as needed use. He should follow -up with his primary care doctor tomorrow for reevaluation before the weekend. The patient will be allowed to be discharged. ER warnings were given. he should also take MiraLAX every other day to prevent constipation.
[2016-12-08 14:03] VITALS: BP 159/92
== END 2016-12-08 13:50 | disposition home or self-care (01) ==
LOC: ER 09:01
DX: S39.011A Strain of muscle, fascia and tendon of abdomen, initial encounter (principal); J44.9 Chronic obstructive pulmonary disease, unspecified; I10 Essential (primary) hypertension; B19.20 Unspecified viral hepatitis C without hepatic coma; Z87.891 Personal history of nicotine dependence; X58.XXXA Exposure to other specified factors, initial encounter; Y92.9 Unspecified place or not applicable
CPT/HCPCS: 36415; 71020; 74176; 80053; 81001; 82150; 82550; 82553; 83605; 83690; 84484; 85025; 85610; 85730; 87040; J1170; J1885; J7030

== ENCOUNTER → 2017-01-23 | Outpatient (CLI) | payer OTHER | LOC: LAB.O 03:00 | PROVIDERS: ATTEND Surgery | DX: T81.4XXD Infection following a procedure, subsequent encounter (principal) ==

== ENCOUNTER 2017-07-15 07:11 | Emergency (ER) | payer SELFPAY ==
[2017-07-15] MEDS ORDERED: MORPHINE SULFATE INJ 10 MG/ML VIAL IM ONE (07:26)
[2017-07-15 07:45] VITALS: TEMP 98.5
--- NOTE | 2017-07-15 08:22 | RAD ---
EXAM: XR Abdomen 2 Views With XR Chest CLINICAL HISTORY: The patient is 56 years old and is Male; diffuse abd pain, hx multiple abd surgeries TECHNIQUE: Frontal view of the chest, frontal view of the abdomen/pelvis and upright or decubitus view of the abdomen. COMPARISON: Prior study from 10/27/2016. FINDINGS: LUNGS: Unremarkable. No consolidation. PLEURAL SPACE: Unremarkable. No pneumothorax. HEART: Unremarkable. No cardiomegaly. MEDIASTINUM: Unremarkable. INTRAPERITONEAL SPACE: No free air. GASTROINTESTINAL TRACT: There are a few nondilated gas-filled small bowel loops in the lower right lower quadrant and pelvis noted. There is gas within nondilated colonic loops. BONES/JOINTS: There are degenerative changes in the lower thoracic spine and spondylotic changes in the lumbar spine. IMPRESSION: No disproportionally dilated loops of bowel to suggest obstruction. Electronically signed by: Ángel Coello MD 07/15/2017 8:21 AM CDT
[2017-07-15] MEDS ORDERED: KETOROLAC TROMETHAMINE INJ 30 MG/ML VIAL IM ONE (08:44)
[2017-07-15] MEDS ORDERED: HYDROcodone 7.5MG/APAP 325MG 1 EA TAB PO ONE (08:45)
--- NOTE | 2017-07-15 09:48 | CT ---
Procedure: CT ABDOMEN PELVIS WITH IV CONTRAST Exam Date: 07/15/2017 8:48 AM CDT Ordering Provider: Bimal Myles Clinical Indication: severe abd pain 8 hours, hx multiple prev abd surg Comparison: None TECHNIQUE: The abdomen and pelvis were scanned utilizing a multidetector helical scanner from the diaphragm to the lesser trochanter . Low osmolar IV contrast was also given. Coronal and sagittal reformations were obtained. This exam was performed according to our departmental dose-optimization program which includes automated exposure control, adjustment of the mA and/or kV according to patient size and/or use of iterative reconstruction technique. DISCUSSION: LOWER THORAX: Normal. HEPATOBILIARY: No focal hepatic lesions. No biliary ductal dilatation. SPLEEN: No splenomegaly. PANCREAS: No focal masses or ductal dilatation. ADRENALS: No adrenal nodules. KIDNEYS/URETERS: No hydronephrosis, stones, or solid mass lesions. Simple cysts are present in bilateral kidneys measuring up to 2.5 cm in the upper pole of the right kidney. There is no hydronephrosis. PELVIC ORGANS/BLADDER: Unremarkable. PERITONEUM / RETROPERITONEUM: No free air or fluid. LYMPH NODES: No lymphadenopathy. VESSELS: Unremarkable. GI TRACT: Extensive postoperative changes are seen in the small bowel in the colon. There is no bowel obstruction. There is however a focal hernia involving the right rectus abdominis muscle. It contains a partially incarcerated segment of the ascending colon. Only a portion of the anterior mesenteric segment of the ascending colon is incarcerated. There is no proximal obstruction or evidence of ischemia. BONES AND SOFT TISSUES: No acute abnormality. IMPRESSION: Right lateral abdominal wall hernia containing incarcerated segment of anterior mesenteric side of the ascending colon compatible with a Narvaez's type hernia. No evidence of ischemia or proximal bowel obstruction. Other nonemergent findings, as described. Electronically signed by: Yadira Rubio MD 07/15/2017 9:47 AM CDT
--- NOTE | 2017-07-15 10:18 | ED.PDOC ---
History of Present Illness - General Chief Complaint: GI Problem Time Seen by Provider: 07/15/17 07:18 Source: patient Exam Limitations: no limitations - History of Present Illness Initial Comments: the patient is a 56-year-old male presenting to the emergency room secondary to reportedly severe abdominal pain starting at 2 AM this morning. He has had some chronic abdominal pain due to multiple previous surgeries. He reports abdominal pain is gradually been getting worse over the last 3 weeks. No fevers. He has been eating and drinking okay. He had a couple of bowel movements within the last 12 hours. That did not increase or lessen his pain. He has known scar tissue of the abdomen. The patient also has a history of significant drug seeking behavior and a very poor tolerance for pain in general. The patient is not jaundiced. There is no leakage from his previous ostomy site. Abdominal exam is very difficult secondary to patient anxiety. He is very worked up. Multiple scarring is noted on the abdominal exam. No obvious palpable mass with the exception of what is probably a hernia at the previous ostomy site. Timing/Duration: unsure Severity: severe Improving Factors: nothing Worsening Factors: nothing Associated Symptoms: malaise Allergies/Adverse Reactions: Allergies NO KNOWN ALLERGY Allergy (Verified 01/18/16 06:56) Home Medications: Ambulatory Orders Rzridlryxbctl-Awvp-Nntztsxkpv [Fioricet] 1 ea PO Q8H PRN #21 tab 12/08/16 Polyethylene Glycol 3350 [Miralax] 17 gm PO BID 12/08/16 Review of Systems - Review of Systems Constitutional: States: no symptoms reported EENTM: States: no symptoms reported Respiratory: States: no symptoms reported Cardiology: States: no symptoms reported Gastrointestinal/Abdominal: States: see HPI Genitourinary: States: no symptoms reported Musculoskeletal: States: no symptoms reported Skin: States: no symptoms reported Neurological: States: anxiety Endocrine: States: no symptoms reported All other Systems: No Change from Baseline Past Medical History (General) - Patient Medical History Hx Seizures: No Hx Stroke: No Hx Dementia: No Hx Asthma: No Hx of COPD: Yes Hx Cardiac Disorders: No Hx Congestive Heart Failure: No Hx Pacemaker: No Hx Hypertension: Yes Hx Thyroid Disease: No Hx Diabetes: No Hx Gastroesophageal Reflux: No Hx Renal Disease: No Hx Cancer: No Hx of HIV: No Hx Hepatitis C: Yes Hx MRSA: No Surgical History: other - Vaccination History Hx Tetanus, Diphtheria Vaccination: No Hx Influenza Vaccination: No Hx Pneumococcal Vaccination: No - Social History Hx Tobacco Use: Yes Hx Chewing Tobacco Use: No Hx Alcohol Use: No Hx Substance Use: No Hx Substance Use Treatment: No Hx Depression: No Hx Physical Abuse: No Hx Emotional Abuse: No Hx Suspected Abuse: No - Female History Patient : No Family Medical History - Family History Mother Family History: Unknown Living Status: Cause of : cardiac disease Hx Cardiac Disease: Yes Hx Family;Other: Liver disease Physical Exam - Physical Exam General Appearance: Alert, Anxious Eye Exam: bilateral normal Ears, Nose, Throat: hearing grossly normal, normal ENT inspection, normal pharynx Neck: supple Respiratory: lungs clear, normal breath sounds, no respiratory distress, no accessory muscle use Cardiovascular/Chest: normal peripheral pulses, regular rate, rhythm, no edema Peripheral Pulses: radial,right: 2+, radial,left: 2+, dorsalis pedis,right: 2+, dorsalis pedis,left: 2+ Gastrointestinal/Abdominal: other - see history of present illness. Bowel sounds are present. Rectal Exam: deferred Back Exam: normal inspection, no CVA tenderness Extremity: non-tender, normal inspection, no pedal edema, normal capillary refill Neurologic: nurse companion II-XII nml as tested, alert, oriented x 3, other - the patient is very anxious on the border of a panic attack Skin Exam: normal color Comments: Vital Signs - 24 hr 07/15/17 07/15/17 07/15/17 07:20 08:09 09:03 Temperature 98.5 F Pulse Rate [ 88 88 89 left brachial] Respiratory 24 24 20 Rate Blood Pressure 173/89 182/93 173/99 [left brachial] O2 Sat by Pulse 97 97 96 Oximetry Progress - Progress Progress: 07/15/17 10:20 the patient is a 56-year-old male presenting to the emergency room secondary to diffuse abdominal pain. This is likely from his hernia site as well as a fairly large amount of gas in the bowel. the hernia is not new. No evidence of any ischemia has been found. No evidence of any infection has been found. No evidence of any obstruction has been found. The patient needs to ambulate. He can also take Gas-X. He does need to increase his fluid intake. He does need to follow up with his general surgeon next week to discuss the hernia and any future plans for it. ER warnings are given. He should also keep previous follow-up with his primary care doctor. 07/15/17 10:22 - Results/Orders Results/Orders: Laboratory Tests 07/15/17 07/15/17 07/15/17 07:43 07:43 07:43 WBC 9.0 RBC 5.11 Hgb 15.5 Hct 45.9 MCV 90.0 MCH 30.3 MCHC 33.7 RDW 14.0 Plt Count 262 MPV 7.0 L Absolute Neuts (auto) 5.20 Absolute Lymphs (auto) 2.60 Absolute Monos (auto) 0.90 H Absolute Eos (auto) 0.20 Absolute Basos (auto) 0.10 Neutrophils % 58.0 Lymphocytes % 28.5 Monocytes % 10.2 H Eosinophils % 2.5 Basophils % 0.8 PT 11.3 INR 0.970 PTT (SP) 31.3 D-Dimer, Quantitative < 200 Sodium 137 Potassium 3.9 Chloride 106 Carbon Dioxide 23 Anion Gap 11.9 L BUN 14 Creatinine 0.97 BUN/Creatinine Ratio 14.4 Random Glucose 122 H Serum Osmolality 275.6 Lactic Acid Calcium 8.7 Total Bilirubin 0.8 AST 25 ALT 18 Alkaline Phosphatase 77 Creatine Kinase 233 H* CK-MB (CK-2) 3.5 CK-MB (CK-2) % Not Reportable Troponin I < 0.02 Serum Total Protein 7.7 Albumin 4.0 Globulin 3.7 H Albumin/Globulin Ratio 1.1 Amylase 37 Lipase 23 Urine Color Urine Appearance Urine pH Ur Specific [place] Urine Protein Urine Glucose (UA) Urine Ketones Urine Blood Urine Nitrite Urine Bilirubin Urine Urobilinogen Ur Leukocyte Esterase Urine RBC Urine WBC Ur Epithelial Cells Urine Bacteria 07/15/17 07/15/17 07:43 07:48 WBC RBC Hgb Hct MCV MCH MCHC RDW Plt Count MPV Absolute Neuts (auto) Absolute Lymphs (auto) Absolute Monos (auto) Absolute Eos (auto) Absolute Basos (auto) Neutrophils % Lymphocytes % Monocytes % Eosinophils % Basophils % PT INR PTT (SP) D-Dimer, Quantitative Sodium Potassium Chloride Carbon Dioxide Anion Gap BUN Creatinine BUN/Creatinine Ratio Random Glucose Serum Osmolality Lactic Acid 2.2 Calcium Total Bilirubin AST ALT Alkaline Phosphatase Creatine Kinase CK-MB (CK-2) CK-MB (CK-2) % Troponin I Serum Total Protein Albumin Globulin Albumin/Globulin Ratio Amylase Lipase Urine Color Yellow Urine Appearance Clear Urine pH 5.0 Ur Specific [place] 1.010 Urine Protein Negative Urine Glucose (UA) Negative Urine Ketones Negative Urine Blood Negative Urine Nitrite Negative Urine Bilirubin Negative Urine Urobilinogen 0.2 Ur Leukocyte Esterase Negative Urine RBC 0 Urine WBC 0 Ur Epithelial Cells 0 Urine Bacteria 0 acute abdominal exam shows no acute pathology. CT scan of the abdomen and pelvis with contrast shows chronic findings as well as a new confirmed finding of a right lateral ventral hernia at the previous ostomy site. He does appear incarcerated however there is no evidence of any ischemia and no evidence of anyobstruction proximally. No significant free fluid in the pelvis. No indication of any perforation. No indication of any bowel ischemia. No indication of infection. Departure - Departure Clinical Impression: Ventral hernia Qualifiers: Obstruction and gangrene presence: without obstruction or gangrene Qualified Code(s): K43.9 - Ventral hernia without obstruction or gangrene Disposition: Discharge to Home or Self Care Condition: Fair Departure Forms: ED Discharge - Pt. Copy, Patient Portal Self Enrollment Instructions: Ventral Hernia Diet: regular diet Activity: increase activity as tolerated Home Medications: Ambulatory Orders Vetybvenbsxft-Dqli-Hdtdzceaue [Fioricet] 1 ea PO Q8H PRN #21 tab 12/08/16 Polyethylene Glycol 3350 [Miralax] 17 gm PO BID 12/08/16 Additional Instructions: the patient is a 56-year-old male presenting to the emergency room secondary to diffuse abdominal pain. This is likely from his hernia site as well as a fairly large amount of gas in the bowel. No evidence of any ischemia has been found. No evidence of any infection has been found. No evidence of any obstruction has been found. The patient needs to ambulate. He can also take Gas-X. He does need to increase his fluid intake. He does need to follow up with his general surgeon next week to discuss the hernia and any future plans for it. ER warnings are given. He should also keep previous follow-up with his primary care doctor.
[2017-07-15 10:53] VITALS: BP 183/91; O2SAT 97
== END 2017-07-15 10:40 | disposition home or self-care (01) ==
LOC: ER 07:11
DX: K43.9 Ventral hernia without obstruction or gangrene (principal); I10 Essential (primary) hypertension; Z86.19 Personal history of other infectious and parasitic diseases
CPT/HCPCS: 36415; 74019; 74177; 80053; 81001; 82150; 82550; 82553; 83605; 83690; 84484; 85025; 85379; 85610; 85730; 87040; J1885; J2270

== ENCOUNTER 2018-09-16 13:24 | Emergency (ER) | payer MEDICARE, MEDICAID ==
[2018-09-16] MEDS ORDERED: MORPHINE SULFATE INJ 10 MG/ML VIAL IV ONE (15:03)
--- NOTE | 2018-09-16 15:53 | CT ---
PROCEDURE: CT Abdomen and Pelvis With Intravenous Contrast CLINICAL INDICATION: The patient is 57 years old and is Male; abdominal pain TECHNIQUE: Axial computed tomography images of the abdomen and pelvis with intravenous contrast. Sagittal and coronal reformatted images were created and reviewed. This CT exam was performed using one or more of the following dose reduction techniques: automated exposure control, adjustment of the mA and/or kV according to patient size, and/or use of iterative reconstruction technique. COMPARISON: Prior study from 07/15/2017 also without contrast. FINDINGS: LUNG BASES: Unremarkable. No mass. No consolidation. ABDOMEN: LIVER: Hepatic steatosis is identified. No intrahepatic lesions are noted. GALLBLADDER AND BILE DUCTS: The gallbladder is contracted. No calcified stones. No ductal dilation. PANCREAS: There are very mild fatty involutional changes of the pancreas. NO findings to suggest pancreatitis. SPLEEN: Unremarkable. No splenomegaly. No splenic lesion noted. ADRENALS: Unremarkable. No mass. KIDNEYS AND URETERS: There are small bilateral renal cysts. The kidneys otherwise enhance normally. The cysts are stable. No hydronephrosis. STOMACH AND BOWEL: There are some mildly prominent LEFT of midline upper abdominal small bowel loops which are fluid and gas distended. There is no overt evidence of obstruction, however. This is also noted involving a small bowel loop in LEFT lower quadrant. There is further increased herniation of the cecum and now involving at least 2 collapsed distal small bowel loops into a large RIGHT lower quadrant [place] hernia. There are inflammatory changes within the hernia sac, mild in degree. However, there is no evidence of obstruction, strangulation or incarceration to be noted. There has been a prior mid sigmoid resection. There is diverticulosis coli without diverticulitis. The cecum is gas-filled. There are are suture anastomoses of in the small bowel of the RIGHT lower quadrant. PELVIS: APPENDIX: No findings to suggest acute appendicitis. BLADDER: Urinary bladder is unremarkable. REPRODUCTIVE: The prostate gland is enlarged. ABDOMEN and PELVIS: INTRAPERITONEAL SPACE: Unremarkable. No free air. No significant fluid collection. BONES/JOINTS: There are minor degenerative changes of the spine identified. SOFT TISSUES: There is a midline laparotomy scar in the subcutaneous tissues. There is a fat-containing LEFT inguinal hernia noted. This is stable. VASCULATURE: There are atheromatous vascular calcifications of the aortoiliac system. No abdominal aortic aneurysm. LYMPH NODES: Unremarkable. No significant retroperitoneal or pelvic lymphadenopathy. IMPRESSION: 1. There are some mildly prominent LEFT of midline upper abdominal small bowel loops which are fluid and gas distended. There is no overt evidence of a bowel obstruction, however. This is also noted involving a small bowel loop in LEFT lower quadrant. 2. There is further increased herniation of the cecum and now involving at least 2 collapsed distal small bowel loops into a large RIGHT lower quadrant wid[place] hernia. There are inflammatory changes within the Narvaez's type hernia sac, mild in degree. However, there is no evidence of obstruction, strangulation or incarceration to be noted. No fluid in the hernia sac. Electronically signed by: Ángel Coello MD 09/16/2018 3:51 PM CDT
--- NOTE | 2018-09-16 16:25 | ED.PDOC ---
History of Present Illness - General Chief Complaint: Abdominal Pain Stated Complaint: R abdominal discomfort Time Seen by Provider: 09/16/18 13:40 Source: patient Exam Limitations: no limitations - History of Present Illness Initial Comments: Patient presents with acute on chronic right abdominal pain He had a hernia there that was repaired and prior complications with a colostomy bag. He has presented with these symptoms before with the last one being over a year ago. He says the pain has been increasing in the last week and finally got unbearable today. The pain is non-radiating, cramping and sharp, associated with nausea. He denies diarrhea or vomiting. No other complaints. Timing/Duration: changing over time Severity: moderate Improving Factors: rest Worsening Factors: movement Associated Symptoms: other - as in HPI Allergies/Adverse Reactions: Allergies NO KNOWN ALLERGY Allergy (Verified 01/18/16 06:56) Home Medications: Ambulatory Orders Yvirgmvwewtzt-Toru-Xqbltynkkw [Fioricet] 1 ea PO Q8H PRN #21 tab 12/08/16 Polyethylene Glycol 3350 [Miralax] 17 gm PO BID 12/08/16 Acetaminophen W/ Codeine [Tylenol W/ CODEINE #3] 1 ea PO Q4HR #14 09/16/18 Review of Systems - Review of Systems Constitutional: States: no symptoms reported EENTM: States: no symptoms reported Respiratory: States: no symptoms reported Cardiology: States: no symptoms reported Gastrointestinal/Abdominal: States: see HPI Genitourinary: States: no symptoms reported Musculoskeletal: States: no symptoms reported Skin: States: no symptoms reported Neurological: States: no symptoms reported Endocrine: States: no symptoms reported Hematologic/Lymphatic: States: no symptoms reported Past Medical History (General) - Patient Medical History Hx Seizures: No Hx Stroke: No Hx Dementia: No Hx Asthma: No Hx of COPD: Yes Hx Cardiac Disorders: No Hx Congestive Heart Failure: No Hx Pacemaker: No Hx Hypertension: Yes Hx Thyroid Disease: No Hx Diabetes: No Hx Gastroesophageal Reflux: No Hx Renal Disease: No Hx Cancer: No Hx of HIV: No Hx Hepatitis C: Yes Hx MRSA: No - Vaccination History Hx Tetanus, Diphtheria Vaccination: No Hx Influenza Vaccination: No Hx Pneumococcal Vaccination: No - Social History Hx Tobacco Use: Yes Hx Chewing Tobacco Use: No Hx Alcohol Use: No Hx Substance Use: No Hx Substance Use Treatment: No Hx Depression: No Hx Physical Abuse: No Hx Emotional Abuse: No Hx Suspected Abuse: No - Female History Patient : No Family Medical History - Family History Mother Family History: Unknown Living Status: Cause of : cardiac disease Hx Cardiac Disease: Yes Hx Family;Other: Liver disease Physical Exam - Physical Exam General Appearance: Alert Eye Exam: bilateral normal Ears, Nose, Throat: normal ENT inspection Neck: non-tender, full range of motion, supple Respiratory: lungs clear, normal breath sounds Cardiovascular/Chest: tachycardia Gastrointestinal/Abdominal: normal bowel sounds, other - TTP over right visible hernia. Hernia is about the same diameter of a basketball. There is a scar in the center of the hernia from a colostomy bag. He has a ventral scar as well from colonectomy. NABS. Back Exam: normal inspection, no CVA tenderness Extremity: normal range of motion, non-tender, normal inspection Neurologic: no motor/sensory deficits, alert, normal mood/affect, oriented x 3 Skin Exam: normal color Lymphatic: no adenopathy Progress - Progress Progress: 09/16/18 16:27 Laboratory Tests 09/16/18 09/16/18 09/16/18 13:47 13:47 13:50 WBC 7.8 RBC 5.02 Hgb 15.8 Hct 46.2 MCV 91.9 MCH 31.5 H MCHC 34.2 RDW 14.1 Plt Count 284 MPV 7.4 Absolute Neuts (auto) 3.70 Absolute Lymphs (auto) 2.70 Absolute Monos (auto) 1.10 H Absolute Eos (auto) 0.10 Absolute Basos (auto) 0.10 Neutrophils % 47.5 Lymphocytes % 35.0 Monocytes % 13.8 H Eosinophils % 1.8 Basophils % 1.9 Sodium 137 Potassium 4.0 Chloride 105 Carbon Dioxide 21 Anion Gap 15.0 BUN 14 Creatinine 0.83 BUN/Creatinine Ratio 16.9 Random Glucose 95 Serum Osmolality 274.1 L Lactic Acid 1.4 Calcium 9.1 Total Bilirubin 0.6 AST 21 ALT 18 Alkaline Phosphatase 73 Serum Total Protein 7.9 Albumin 4.3 Globulin 3.6 H Albumin/Globulin Ratio 1.2 Lipase 27 Urine Color Urine Appearance Urine pH Ur Specific [place] Urine Protein Urine Glucose (UA) Urine Ketones Urine Blood Urine Nitrite Urine Bilirubin Urine Urobilinogen Ur Leukocyte Esterase Urine RBC Urine WBC Ur Epithelial Cells Urine Bacteria Urine Opiates Screen Urine Barbiturates Ur Phencyclidine Scrn U Amphetamin/Meth Scrn U Benzodiazepines Scrn U Cocaine Metab Screen U Cannabinoids Screen 09/16/18 09/16/18 14:38 14:38 WBC RBC Hgb Hct MCV MCH MCHC RDW Plt Count MPV Absolute Neuts (auto) Absolute Lymphs (auto) Absolute Monos (auto) Absolute Eos (auto) Absolute Basos (auto) Neutrophils % Lymphocytes % Monocytes % Eosinophils % Basophils % Sodium Potassium Chloride Carbon Dioxide Anion Gap BUN Creatinine BUN/Creatinine Ratio Random Glucose Serum Osmolality Lactic Acid Calcium Total Bilirubin AST ALT Alkaline Phosphatase Serum Total Protein Albumin Globulin Albumin/Globulin Ratio Lipase Urine Color Yellow Urine Appearance Clear Urine pH 5.0 Ur Specific [place] 1.025 Urine Protein Negative Urine Glucose (UA) Negative Urine Ketones Negative Urine Blood Negative Urine Nitrite Negative Urine Bilirubin Negative Urine Urobilinogen 0.2 Ur Leukocyte Esterase Negative Urine RBC 0 Urine WBC 0 Ur Epithelial Cells 0 Urine Bacteria 0 Urine Opiates Screen Negative Urine Barbiturates Negative Ur Phencyclidine Scrn Negative U Amphetamin/Meth Scrn Negative U Benzodiazepines Scrn Negative U Cocaine Metab Screen Negative U Cannabinoids Screen Negative CT showed changes in bowel loops in the right lower quadrant but no obvious obstruction. There was also changes in loops of small bowel in the left lower quadrant. No signs of systemic infection. Lactic acid 1.4. I spoke with Dr. Nash on the phone and was told that the hospital did not have the proper mesh to repair the hernia. It was agreed that the patient needed transfer to [facility]. The patient said that he could not go today because he needed to take care of his at home. He was warned of the possible dangers of incarceration, infection, and small bowel obstruction which could lead to . The patient acknowledged this and left AMA. He said he would return tomorrow or go directly to [facility]. Care instructions given. E.R. warnings given. Questions were elicited and answered. Patient voiced understanding and agreement of the dangers of leaving today. He was given an RX for tylenol #3. Departure - Departure Clinical Impression: Hernia, Abdominal pain Disposition: Left Against Medical Advice Condition: Fair Departure Forms: ED Discharge - Pt. Copy, Patient Portal Self Enrollment Instructions: DI for Abdominal Pain-Adult, Clear Liquid Diet Diet: other - clear liquid diet Activity: no exercise, no lifting, walking as tolerated Referrals: UNKNOWN,PHYSICIAN [Primary Care Provider] - 1-2 Weeks Prescriptions: Acetaminophen W/ Codeine [Tylenol W/ CODEINE #3] 1 ea PO Q4HR #14 Home Medications: Ambulatory Orders Cppbftstyxyvx-Mwdn-Ahogfuhzpo [Fioricet] 1 ea PO Q8H PRN #21 tab 12/08/16 Polyethylene Glycol 3350 [Miralax] 17 gm PO BID 12/08/16 Acetaminophen W/ Codeine [Tylenol W/ CODEINE #3] 1 ea PO Q4HR #14 09/16/18 Additional Instructions: You are advised not to leave the emergency room and to be transported to [facility] for surgery.
[2018-09-16 17:18] VITALS: BP 190/131; TEMP 98.2; O2SAT 95
== END 2018-09-16 16:45 | disposition left against medical advice (07) ==
LOC: ER 13:24
DX: K45.8 Other specified abdominal hernia without obstruction or gangrene (principal); K40.90 Unilateral inguinal hernia, without obstruction or gangrene, not specified as recurrent; R10.9 Unspecified abdominal pain; R11.0 Nausea; I10 Essential (primary) hypertension; J44.9 Chronic obstructive pulmonary disease, unspecified; Z53.29 Procedure and treatment not carried out because of patient's decision for other reasons; Z87.891 Personal history of nicotine dependence; Z86.19 Personal history of other infectious and parasitic diseases
CPT/HCPCS: 74177; 80053; 80307; 81001; 83605; 83690; 85025; J2270

== ENCOUNTER 2018-09-17 10:32 | Emergency (ER) | payer MEDICARE, MEDICAID ==
[2018-09-17] MEDS ORDERED: MORPHINE SULFATE INJ 10 MG/ML VIAL IV ONE ×2 (10:57→12:12)
[2018-09-17] MEDS ORDERED: PIPERACILLIN/TAZOBACTAM 3.375 GM in SODIUM CHLORIDE 0.9% 100ML 100 ML IVPB ONE (11:38)
[2018-09-17] MEDS ORDERED: SODIUM CHLORIDE 0.9% 100ML 100 ML IVPB ONE (11:41)
[2018-09-17] MEDS ORDERED: PIPERACILLIN/TAZOBACTAM 3.375 GM VIAL IVPB ONE (11:41)
--- NOTE | 2018-09-17 11:41 | RAD ---
EXAM DESCRIPTION: Abdomen Series CLINICAL HISTORY: abd pain rlq hernia COMPARISON: July 15, 2017 FINDINGS: AP supine and upright views of the abdomen show a nonspecific, nonobstructive bowel gas pattern with no evidence for free intraperitoneal air. No air-filled dilated loops of small bowel are seen. No significant air-fluid levels are identified. No obvious organomegaly is seen. No abnormal calcifications are seen in the expected location of the renal collecting systems. Surgical suture line in the mid pelvis is stable. Single view of the chest shows cardiac silhouette and pulmonary vasculature to be within normal limits. Lungs are normally aerated and clear IMPRESSION: Nonspecific abdominal series Densities in the right lower quadrant of the abdomen are nonspecific and 6 on plain film x-ray. Abdominal wall hernia is not well appreciated on x-ray imaging. Electronically signed by: Branden Lane MD 09/17/2018 11:39 AM CDT
--- NOTE | 2018-09-17 12:30 | ED.PDOC ---
History of Present Illness - General Chief Complaint: Abdominal Pain Stated Complaint: abdominal pain Time Seen by Provider: 09/17/18 10:34 Source: patient Exam Limitations: no limitations - History of Present Illness Initial Comments: the patient's a 57-year-old male presenting to the emergency room for the second time in 24 hours secondary to persistent right lower quadrant pain. The patient was seen here last night and appropriately worked up with lab work and a CT scan. CT scan indicated inflammation within the right lower quadrant hernia sac which is where he is having the pain. They did try to transfer and [facility] last night for surgical evaluation however the patient left AGAINST MEDICAL ADVICE as he had to make arrangements for his care of his very sick . He showed back up this morning with increased pain. He has nausea and vomiting yesterday but none since he left the hospital yesterday. He did have a bowel movement this morning without any blood. He is not hungry. Pain seems to be localized over the hernia sac. The hernia itself seems to be partially reducible. I do not feel any hard mass within it. It is very painful to touch and attempt to reduce. The patient apparently originally had a bowel resection done about a year and a half ago at [facility] for complications of diverticulitis. He apparently had a dehiscence of the repair and then another surgery that left him with an ileostomy according to him. This was taken down several months after that and he has developed a hernia site from where the ileostomy was. He is in significant pain this morning. Again no nausea or vomiting. Timing/Duration: other - about 36 hours Severity: moderate Improving Factors: nothing Worsening Factors: movement Associated Symptoms: loss of appetite, nausea/vomiting Allergies/Adverse Reactions: Allergies NO KNOWN ALLERGY Allergy (Verified 01/18/16 06:56) Home Medications: Ambulatory Orders Mklmslzvbckva-Zbwn-Dszcotndgr [Fioricet] 1 ea PO Q8H PRN #21 tab 12/08/16 Polyethylene Glycol 3350 [Miralax] 17 gm PO BID 12/08/16 Acetaminophen W/ Codeine [Tylenol W/ CODEINE #3] 1 ea PO Q4HR #14 09/16/18 Review of Systems - Review of Systems Constitutional: States: no symptoms reported EENTM: States: no symptoms reported Respiratory: States: no symptoms reported Cardiology: States: no symptoms reported Gastrointestinal/Abdominal: States: abdominal pain, nausea Genitourinary: States: no symptoms reported Musculoskeletal: States: no symptoms reported Skin: States: no symptoms reported Neurological: States: no symptoms reported Endocrine: States: no symptoms reported All other Systems: No Change from Baseline Past Medical History (General) - Patient Medical History Hx Seizures: No Hx Stroke: No Hx Dementia: No Hx Asthma: No Hx of COPD: Yes Hx Cardiac Disorders: No Hx Congestive Heart Failure: No Hx Pacemaker: No Hx Hypertension: Yes Hx Thyroid Disease: No Hx Diabetes: No Hx Gastroesophageal Reflux: No Hx Renal Disease: No Hx Cancer: No Hx of HIV: No Hx Hepatitis C: Yes Hx MRSA: No Surgical History: appendectomy, colectomy - Vaccination History Hx Tetanus, Diphtheria Vaccination: No Hx Influenza Vaccination: No Hx Pneumococcal Vaccination: No - Social History Hx Tobacco Use: Yes Hx Chewing Tobacco Use: No Hx Alcohol Use: No Hx Substance Use: No Hx Substance Use Treatment: No Hx Depression: No Hx Physical Abuse: No Hx Emotional Abuse: No Hx Suspected Abuse: No - Female History Patient : No Family Medical History - Family History Mother Family History: Unknown Living Status: Cause of : cardiac disease Hx Cardiac Disease: Yes Hx Family;Other: Liver disease Physical Exam - Physical Exam General Appearance: Alert, Anxious, Obvious distress Eye Exam: bilateral normal Ears, Nose, Throat: hearing grossly normal, normal ENT inspection Neck: full range of motion, supple Respiratory: lungs clear, normal breath sounds, no respiratory distress, no accessory muscle use Cardiovascular/Chest: normal peripheral pulses, regular rate, rhythm, no edema Peripheral Pulses: radial,right: 2+, radial,left: 2+, dorsalis pedis,right: 2+, dorsalis pedis,left: 2+ Gastrointestinal/Abdominal: other - see history of present illness. No skin changes. Multiple scars present. 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 CT scan from yesterday shows inflammatory changes within the hernia. It feels to be partially reducible. He is not demonstrating evidence clinically of an obstruction. White blood cell count is within normal limits as is the lactic acid level, d-dimer and there is only mild elevation of muscle enzymes. He has received 2 rounds of IV morphine and is still hurting fairly significantly according to him. As a note, from dealings with him in the past while taking care of his , he is a fairly excitable and demonstrative vicente. While I do not doubt that he is hurting significantly, he has been prone to some exaggeration in the past. he will be made nothing by mouth for evaluation with the general surgeon upon his arrival at [facility]. He has been transferred for specialty evaluation. He did receive 1 dose of Zosyn IV primarily prophylactically. I have not repeated the CT scan on him this morning as he had one yesterday evening. A copy of this CT scan will be sent along as well. Transferred for higher level care. - Results/Orders Results/Orders: acute abdominal series this morning failed to show any free air or evidence of obstruction. Laboratory Results - last 24 hr 09/17/18 09/17/18 09/17/18 10:55 10:55 10:55 WBC 6.7 RBC 5.02 Hgb 16.0 Hct 45.7 MCV 91.0 MCH 31.9 H MCHC 35.0 RDW 13.8 Plt Count 286 MPV 7.4 Absolute Neuts (auto) 3.80 Absolute Lymphs (auto) 2.00 Absolute Monos (auto) 0.70 Absolute Eos (auto) 0.10 Absolute Basos (auto) 0.10 Neutrophils % 57.0 Lymphocytes % 29.7 Monocytes % 10.9 H Eosinophils % 1.3 Basophils % 1.1 PT 9.9 INR 0.99 PTT (SP) 26.7 D-Dimer, Quantitative 0.35 Sodium 139 Potassium 3.7 Chloride 104 Carbon Dioxide 23 Anion Gap 15.7 BUN 17 Creatinine 1.04 BUN/Creatinine Ratio 16.3 Random Glucose 131 H D Serum Osmolality 280.9 Lactic Acid Calcium 9.4 Total Bilirubin 0.6 AST 24 ALT 21 Alkaline Phosphatase 85 Creatine Kinase 256 H* CK-MB (CK-2) 6.0 H* CK-MB (CK-2) % 2.34 Troponin I < 0.02 Serum Total Protein 8.6 H Albumin 4.6 Globulin 4.0 H Albumin/Globulin Ratio 1.2 Amylase 39 Lipase 29 09/17/18 11:00 WBC RBC Hgb Hct MCV MCH MCHC RDW Plt Count MPV Absolute Neuts (auto) Absolute Lymphs (auto) Absolute Monos (auto) Absolute Eos (auto) Absolute Basos (auto) Neutrophils % Lymphocytes % Monocytes % Eosinophils % Basophils % PT INR PTT (SP) D-Dimer, Quantitative Sodium Potassium Chloride Carbon Dioxide Anion Gap BUN Creatinine BUN/Creatinine Ratio Random Glucose Serum Osmolality Lactic Acid 1.1 Calcium Total Bilirubin AST ALT Alkaline Phosphatase Creatine Kinase CK-MB (CK-2) CK-MB (CK-2) % Troponin I Serum Total Protein Albumin Globulin Albumin/Globulin Ratio Amylase Lipase Departure - Departure Clinical Impression: Abdominal wall hernia, Uncontrolled pain Disposition: Transfer to Hospital Condition: Serious Departure Forms: ED Discharge - Pt. Copy, Patient Portal Self Enrollment Home Medications: Ambulatory Orders Kfhzxhiavurdk-Ofmp-Tdegcxbksb [Fioricet] 1 ea PO Q8H PRN #21 tab 12/08/16 Polyethylene Glycol 3350 [Miralax] 17 gm PO BID 12/08/16 Acetaminophen W/ Codeine [Tylenol W/ CODEINE #3] 1 ea PO Q4HR #14 09/16/18 Transfer to Outside Facility - Transfer Information Accepting Provider:: dr alanis Accepting Facility: [facility] Reason for Transfer: required specialist not available
[2018-09-17 12:34] VITALS: BP 158/98; TEMP 98; O2SAT 94
== END 2018-09-17 12:58 | disposition short-term general hospital (02) ==
LOC: ER 10:32
DX: K43.9 Ventral hernia without obstruction or gangrene (principal); R11.2 Nausea with vomiting, unspecified; J44.9 Chronic obstructive pulmonary disease, unspecified; I10 Essential (primary) hypertension; Z87.891 Personal history of nicotine dependence; Z90.49 Acquired absence of other specified parts of digestive tract; Z86.19 Personal history of other infectious and parasitic diseases; Z98.890 Other specified postprocedural states
CPT/HCPCS: 36415; 74019; 80053; 82150; 82550; 82553; 83605; 83690; 84484; 85025; 85379; 85610; 85730; J2270; J2543; J7050